=== PATIENT | female | born 1945 | race Caucasian/White ===

== ENCOUNTER → 2016-09-27 | Outpatient (CLI) | payer MEDICARE, OTHER ==
--- NOTE | 2016-10-01 11:15 | MM ---
Reason for exam: screening (asymptomatic). Last mammogram was performed 11 years and 7 months ago. History: Patient is postmenopausal and is nulliparous. Physical Findings: A clinical breast exam by your physician is recommended on an annual basis and results should be correlated with mammographic findings. MG 3D Screening Mammo W/Cad Bilateral CC and MLO view(s) were taken. Prior study comparison: June 08, 2013, mammogram, performed at [facility]. There is no discrete abnormality. ASSESSMENT: Negative, BI-RAD 1 RECOMMENDATION: Routine screening mammogram of both breasts in 1 year.
== END | disposition home or self-care (01) ==
LOC: RADMAMWWP 14:38
PROVIDERS: ATTEND Podiatrist
DX: Z12.31 Encounter for screening mammogram for malignant neoplasm of breast (principal)
CPT/HCPCS: 77063; G0202

== ENCOUNTER → 2016-10-12 | Outpatient (CLI) | payer MEDICARE, OTHER ==
[2016-10-12 13:07] LABS: CHCM 30.6; HDW 2.49; HGB 11.2 gm/dL (11.4-16.0); Hypochromasia Moderate; MCH 28.4 pg (25.0-35.0); MCV 88.6 fL (80.0-100.0); Mean Platelet Volume 7.1; RBC 3.95 m/uL (3.80-5.40); RDW 14.8 % (11.5-15.5); WBC 6.8 k/uL (3.8-10.6)
[2016-10-12 13:28] LABS: Anion Gap 10 mmol/L; Blood Urea Nitrogen 20 mg/dL (7-17); Carbon Dioxide 32 mmol/L (22-30); Chloride 99 mmol/L (98-107); Non-African American GFR(MDRD) >60 (>60 ml/min/1.73 sqM); Potassium 4.5 mmol/L (3.5-5.1); Sodium 141 mmol/L (137-145)
== END | disposition home or self-care (01) ==
LOC: LABWHC1 12:09
PROVIDERS: ATTEND Internal Medicine Interventional Cardiology
DX: Z01.812 Encounter for preprocedural laboratory examination (principal); Z01.818 Encounter for other preprocedural examination; I73.9 Peripheral vascular disease, unspecified
CPT/HCPCS: 80051; 82565; 84520; 85027

== ENCOUNTER → 2016-10-24 | Day surgery (SDC) | payer MEDICARE, OTHER ==
[2016-10-22 12:03] VITALS: BMI 60.2
[~2016-10-24] MED LIST: ALPRAZolam 0.25 MG TAB PO PRN; ASPIRIN 325 MG TAB PO STA; HEPARIN SODIUM 1,000 UNIT/ML VIAL IV ONE; IODIXANOL 320 MG/ML 100 ML INTRAARTER ONE; LIDOCAINE 2% INJ 20 MG/ML SQ ONE; SODIUM CHLORIDE 0.9% 1,000 ML IV ONE; SODIUM CHLORIDE 0.9% 1,000 ML IV SCH; SODIUM CHLORIDE 0.9% 1,000 ML in EMPTY BAG 1 BAG IV ONE
[2016-10-24 07:01] LABS: Glucose,Whole Blood 126 mg/dL (75-99)
[2016-10-24 07:10] VITALS: RESP 18
[2016-10-24] MEDS: MIDAZOLAM 2 MG/2 ML VIAL IVP ONE ×2 (07:49→08:04)
[2016-10-24] MEDS: VERAPAMIL SYRINGE (5 MG/10 ML) INTRAARTER ONE ×2 (07:55→08:11)
[2016-10-24 13:21] VITALS: BP 156/67; PULSE 59; TEMP 98.2
--- NOTE | 2016-10-24 17:50 | PCN ---
DATE OF PROCEDURE: 10/24/2016 PERFORMING PHYSICIAN: Bobby Rao M.D., project management consultant. PROCEDURES PERFORMED: 1. Abdominal aortogram. 2. Bilateral lower extremity runoff. INDICATION: This is a pleasant 71-year-old female patient who was experiencing bilateral lower extremity ulcers. She was seen and evaluated by her motion picture narrator, who recommended proceeding with abdominal aortogram to rule out any severe underlying PAD. APPROACH: Right tibia artery. COMPLICATIONS: None. LEVEL OF SEDATION: Moderate, with a sedation length of 25 minutes. APPROACH: Right radial artery. PROCEDURE DESCRIPTION: After obtaining informed consent, the patient was brought to the cardiac mechanical shop laborer. The right radial artery was cannulated using micropuncture technique. The micropuncture wire passed easily. Then I placed a 6 [place] sheath in the right radial artery. Subsequently I gave the patient 2 mg of Verapamil IA and 3000 units of heparin IV. Subsequently I did an abdominal aortogram and bilateral lower extremity runoff using a 5 [place]ian pigtail catheter which was initially placed at the level of the renal arteries, then it was advanced into above the bifurcation of the aorta to right and left common iliac arteries. The procedure was completed without any complication. SELECTIVE PERIPHERAL ANGIOGRAM: 1. The abdominal aorta is angiographically normal. 2. Iliac system. The right and left common iliac arteries, right and left internal iliac arteries, and the right and left external iliac arteries are angiographically normal. 3. Femoral system. The right and left common femoral arteries, right and left profundae, and right and left SFAs are angiographically normal. 4. Popliteals. The right and left popliteals are angiographically normal. 5. Below the knee. There is 3-vessel runoff below the knee bilaterally. CONCLUSION: Normal peripheral angiogram. POST-PROCEDURE MANAGEMENT: 1. Medical treatment. 2. Follow up with the patient.
--- NOTE | 2016-11-05 11:58 | IR ---
Fluoroscopy HISTORY: Pain 3.8 minutes fluoroscopy time supplied to the referring clinician. 148 intraoperative C-arm images do cument the procedure. See dictated report from cardiology.
== END ==
LOC: CATHCVL 06:16
PROVIDERS: ATTEND Internal Medicine Interventional Cardiology
DX: L97.429 Non-pressure chronic ulcer of left heel and midfoot with unspecified severity (principal); L97.419 Non-pressure chronic ulcer of right heel and midfoot with unspecified severity; E11.8 Type 2 diabetes mellitus with unspecified complications; E66.01 Morbid (severe) obesity due to excess calories; Z68.44 Body mass index [BMI] 60.0-69.9, adult; E78.5 Hyperlipidemia, unspecified; I10 Essential (primary) hypertension; Z79.84 Long term (current) use of oral hypoglycemic drugs; Z79.82 Long term (current) use of aspirin; Z79.899 Other long term (current) drug therapy; Z88.2 Allergy status to sulfonamides
CPT/HCPCS: 36200; 75625; 75716; 99152; 99153; C1769 ×2; C1894; J2001; J2250; Q9967; J1644

== ENCOUNTER → 2017-09-12 | Outpatient (CLI) | payer MEDICARE, OTHER ==
--- NOTE | 2017-09-12 14:32 | BD ---
EXAMINATION TYPE: MG DEXA axial skeleton. DATE OF EXAM: 09/12/2017 COMPARISON: 2002 CLINICAL HISTORY: Postmenopausal female. Osteoporosis screening. Height: 5 FT 6 IN Weight: 380 FRAX RISK QUESTIONS: Alcohol (3 or more units per day): NO Family History (Parent hip fracture): YES Glucocorticoids (More than 3mos): NO (Ex: prednisone, prednisolone, methylprednisolone, dexamethasone, and hydrocortisone). History of Fracture in Adulthood: YES Secondary Osteoporosis: 1. Type 1 Diabetes: NO 2. Hyperthyroidism: NO 3. Menopause before 45: NO 4. Malnutrition: NO 5. Chronic liver disease: NO Rheumatoid Arthritis: NO Current Tobacco Use: NO RISK FACTORS HISTORY OF: Surgery to Spine/Hip(right/left)/Wrist (right/left): RT HIP REPLACED When: 5-6 YEARS AGO Family History of Osteoporosis: NO Active: NO Postmenopausal woman: TOTAL HYST AGE 50 Lost more than 2 inches in height since high school: YES MEDICATIONS: Thyroid Medications: YES Which medication: LEVOTHYROXINE How Long: OVER 15 YEARS Additional Medications: OMEGA 3, MULTI VIT, ASPIRIN, PRAVASTATIN, FUROSEMIDE, LEVOTHYROXINE, LOSARIN, METOPROLOL TRADJENTA, PIOGLITAZONE, METFORMIN, TOVIAZ, POTCHLORIDE Additional History: EXAM MEASUREMENTS: Bone mineral densitometry was performed using the [place] System. Bone mineral density as measured about the Lumbar spine is: ----- L1-L4(G/cm2): 1.897 T Score Values are as follows: ----- L2: 5.3 ----- L3: 7.8 ----- L4: 7.1 ----- L1-L4: 6.0 Bone mineral density has: INCREASED 41.3 % since study of: 2002 Bone mineral density about the L hip (g/cm2): 0.868 T Score values are as follows: -----L Neck: -1.2 -----L Total: -0.1 Bone mineral density has: DECREASED -18.3 % since study of: 2002 IMPRESSION: Osteopenia (T Score between -2.5 and -1). There is slightly increased risk of fracture and the patient may be considered for treatment. Re-Screen 2-5 years. NOTE: T-SCORE=SD OF THE YOUNG ADULT MEAN.
== END | disposition home or self-care (01) ==
LOC: RADBDWWP 09:45
PROVIDERS: ATTEND Family Medicine
DX: M85.80 Other specified disorders of bone density and structure, unspecified site (principal)
CPT/HCPCS: 77080

== ENCOUNTER → 2017-09-19 | Outpatient (CLI) | payer MEDICARE, OTHER ==
--- NOTE | 2017-09-19 15:37 | US ---
EXAMINATION TYPE: US venous doppler duplex LE LT, DATE OF EXAM: 09/19/2017 2:04 PM CLINICAL HISTORY: M79.604 pain right leg, M79.605 pain left leg. LOWER EXTREMITY VENOUS INSUFFICIENCY for slow heeling left ankle ulcer x 5 years; diabetic; Ht 5'6, WT 380lbs COMPARISON: US SIDE PERFORMED: left 1) Color flow is present and patency is documented in the following vessels. No DVT or SVT is noted . Common Femoral Vein Deep Femoral Vein Femoral Vein Popliteal Vein Proximal Calf Veins Greater Saph Vein 2) There is venous reflux noted at the following venous levels: Left CFV, DFV upper, left Greater S aphenous Vein and Right CFV (for opposite groin assessment) 3) Incompetent perforators are noted at these levels: not assessed due to body habitus and inabili ty to see small veins IMPRESSION: 1. No sonographic evidence of deep venous thrombosis or superficial venous arthrosis within the left lower extremity. 2. Venous reflux of the left common femoral vein, femoral vein, greater saphenous vein, and right com mon femoral vein.
--- NOTE | 2017-09-24 11:36 | P.ARTDOP ---
Arterial Doppler LOWER EXTREMITY ARTERIAL DOPPLER: DATE OF SERVICE: 09/19/2017 Reason for study: Left heel ulcer. Doppler waveforms: Multiphasic to the dorsalis pedis on the right. Atypical throughout on the left.. Pulse volume recording: Blunted digital waveforms. Pressure gradients: Ankle pressures are the only ones recorded.. Ankle-brachial indices: Cannot occlude on the right. 0.94 on the left. Suspect these are falsely elevated.. 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 Fairly normal flow pattern on the right but suspect moderate very distal disease. Suspect moderate left fem-pop disease on the left. Clinical correlation recommended..
== END | disposition home or self-care (01) ==
LOC: RADUSWWP 13:26
PROVIDERS: ATTEND Internal Medicine Infectious Disease
DX: I87.2 Venous insufficiency (chronic) (peripheral) (principal); M79.604 Pain in right leg
CPT/HCPCS: 93922

== ENCOUNTER 2018-02-20 18:23 | Inpatient (IN) | payer MEDICARE, OTHER ==
[2018-02-20] MEDS ORDERED: IBUPROFEN 600 MG TAB PO STA (18:33)
[2018-02-20] MEDS ORDERED: PIPERACILLIN-TAZOBACTAM 3.375 GM in DEXTROSE/WATER 1 50ML.BAG IVPB STA (18:33)
[2018-02-20] MEDS ORDERED: ACETAMINOPHEN TAB 500 MG TAB PO STA (18:33)
--- NOTE | 2018-02-20 18:39 | ED ---
General Adult HPI - General Stated complaint: Fall Time Seen by Provider: 02/20/18 18:25 Source: RN notes reviewed - History of Present Illness Initial comments: This is a 72-year-old female who presents emergency Department she is morbidly obese. Patient comes in because she slipped out of bed did not injure anything but was unable to get up on her own and was very weak and decided to come emergency department. Patient states she also noted that her left leg was extremely red she has a wound on the heel which she's been treated for for quite a while and today the leg was all red. Patient also felt much weaker than normal. Patient did not have any focal deficits however patient denied headache patient denies any lightheadedness or dizziness. Patient any chest pain palpitations difficulty breathing shortness of breath. Patient denied any abdominal pain patient denies nausea vomiting diarrhea. Patient denies any dysuria hematuria urinary frequency. - Related Data Home Medications Medication Instructions Recorded Confirmed Aspirin 81 mg PO DAILY 02/26/14 02/21/18 Furosemide [Lasix] 20 mg PO DAILY PRN 02/26/14 02/20/18 Levothyroxine Sodium [Synthroid] 88 mcg PO DAILY 02/26/14 02/20/18 Multivitamins, Thera [Multivitamin 1 tab PO DAILY 02/26/14 02/20/18 (formulary)] Pioglitazone HCl [Actos] 45 mg PO DAILY 02/26/14 02/20/18 Potassium Chloride [Klor-Con 10] 10 meq PO DAILY 02/26/14 02/20/18 Pravastatin Sodium [Pravachol] 20 mg PO HS 02/26/14 02/20/18 Losartan [Cozaar] 25 mg PO DAILY 11/08/14 02/20/18 metFORMIN HCL 1,000 mg PO BID 11/30/16 02/20/18 Linagliptin [Tradjenta] 5 mg PO DAILY 12/14/16 02/20/18 Metoprolol Succinate (ER) [Toprol 50 mg PO DAILY 02/20/18 02/20/18 Xl] [place]-3 Fatty Acids [[place]-3] 1,000 mg PO DAILY 02/20/18 02/20/18 Aspirin 325 mg PO TID PRN 02/21/18 02/21/18 Cyclobenzaprine HCl 10 mg PO HS 02/22/18 02/22/18 Diclofenac Potassium [Cataflam] 50 mg PO TID PRN 02/22/18 02/22/18 Allergies Allergy/AdvReac Type Severity Reaction Status Date / Time sulfamethoxazole Allergy Dyspnea Verified 02/20/18 19:17 [From Bactrim] trimethoprim [From Bactrim] Allergy Dyspnea Verified 02/20/18 19:17 Review of Systems ROS Statement: Those systems with pertinent positive or pertinent negative responses have been documented in the HPI. ROS Other: All systems not noted in ROS Statement are negative. Past Medical History Past Medical History: Diabetes Mellitus, Hyperlipidemia, Hypertension, Osteoarthritis (OA), Thyroid Disorder Additional Past Medical History / Comment(s): wound bilat. heels, cellulitis, Chronic lymphedema with lymphedema bilateral lower extremities History of Any Multi-Drug Resistant Organisms: MRSA Date of last positivie culture/infection: 08/23/17 MDRO Source:: HEEL Past Surgical History: Hysterectomy, Joint Replacement, Orthopedic Surgery Additional Past Surgical History / Comment(s): [place] knee arthroplasty and rt hip arthroplasty, lt cataract, rt foot sx has plate- screws in place . Past Anesthesia/Blood Transfusion Reactions: No Reported Reaction Past Psychological History: No Psychological Hx Reported Additional Psychological History / Comment(s): lives in the family home with her . Volunteers at a local [facility], no travel history, no change in the home, no animals in the home.No History of tobacco, alcohol or recreational drug use. Smoking Status: Never smoker Past Alcohol Use History: Occasional Past Drug Use History: None Reported - Past Family History Mother Family Medical History: Cancer Brother(s) Family Medical History: Cancer Father Brother(s) Family Medical History: Cancer Mother Sister(s) Family Medical History: Cancer, Diabetes Mellitus Sister(s) Family Medical History: Cancer General Exam - General Exam Comments Initial Comments: GENERAL: Patient is well-developed and well-nourished. Patient is nontoxic and well- hydrated and is in mild distress. Patient is morbidly obese with bilateral lymphedema ENT: Neck is soft and supple. No significant lymphadenopathy is noted. Oropharynx is clear. Moist mucous membranes. Neck has full range of motion without eliciting any pain. EYES: The sclera were anicteric and conjunctiva were pink and moist. Extraocular movements were intact and pupils were equal round and reactive to light. Eyelids were unremarkable. PULMONARY: Unlabored respirations. Good breath sounds bilaterally. No audible rales rhonchi or wheezing was noted. CARDIOVASCULAR: There is a regular rate and rhythm without any murmurs gallops or rubs. ABDOMEN: Soft and nontender with normal bowel sounds. No palpable organomegaly was noted. There is no palpable pulsatile mass. SKIN: Skin is clear with no lesions or rashes and otherwise unremarkable. NEUROLOGIC: Patient is alert and oriented x3. Cranial nerves II through XII are grossly intact. Motor and sensory are also intact. Normal speech, volume and content. Symmetrical smile. MUSCULOSKELETAL: Patient has bilateral lymphedema and a wound on the heels both feet the left leg is erythematous between the knee down to the foot. It is also warm to touch. LYMPHATICS: No significant lymphadenopathy is noted PSYCHIATRIC: Normal psychiatric evaluation. Course Vital Signs 02/20/18 02/20/18 02/20/18 18:33 19:43 20:48 Temperature 101.9 F H 99.5 F 98 F Pulse Rate 88 84 78 Respiratory 20 20 18 Rate Blood Pressure 131/57 116/51 96/46 O2 Sat by Pulse 95 95 95 Oximetry 02/20/18 02/20/18 21:26 22:28 Temperature 97.7 F 98.1 F Pulse Rate 77 80 Respiratory 18 20 Rate Blood Pressure 98/50 123/56 O2 Sat by Pulse 95 95 Oximetry Procedures - Sepsis Sepsis Focused Exam #1 Time Sepsis Criteria Met: 19:00 Sepsis Focused Exam Date: 02/20/18 Sepsis Focused Exam Time: 20:16 Sepsis Focused Exam Complete: Yes Vital Signs & RN Notes Reviewed: Yes Capillary Refill: > 2 Seconds: Fingers Peripheral Pulses: Absent: Dorsalis Pedis (L), Normal: Radial (R) Skin Color: Normal for Patient Respiratory Exam: normal lung sounds Cardiovascular Exam: regular rate Medical Decision Making - Medical Decision Making Patient's ideal body weight is 61 kg EKG shows a sinus rhythm at 85 bpm TX interval is 226 QRS is 162 QT interval 432 QTC is 514. Patient has a right bundle josue block. I gave the patient 2 L of fluid for the 30 miles per ideal body weight. Patient received antibiotics in the emergency department. I spoke with Dr. Gonzales he agreed to admit the patient admitted the patient I wrote admitting orders continued antibiotics on the floor. - Lab Data Result diagrams: 02/20/18 19:17 10/06/18 08:49 Lab Results 02/20/18 02/20/18 02/20/18 Range/Units 19:17 19:17 19:17 WBC 19.5 H (3.8-10.6) k/uL RBC 4.59 (3.80-5.40) m/uL Hgb 12.4 (11.4-16.0) gm/dL Hct 39.5 (34.0-46.0) % MCV 86.0 (80.0-100.0) fL MCH 26.9 (25.0-35.0) pg MCHC 31.3 (31.0-37.0) g/dL RDW 15.7 H (11.5-15.5) % Plt Count 261 (150-450) k/uL Neutrophils % (Manual) 49 % Band Neutrophils % 32 % Lymphocytes % (Manual) 5 % Monocytes % (Manual) 2 % Metamyelocytes % 8 % Myelocytes % 5 % Neutrophils # (Manual) 15.70 H (1.3-7.7) k/uL Lymphocytes # (Manual) 0.98 L (1.0-4.8) k/uL Monocytes # (Manual) 0.39 (0-1.0) k/uL Metamyelocytes # (Man) 1.56 H (0) k/uL Myelocytes # (Manual) 0.98 H (0) k/uL Nucleated RBCs 0 (0-0) /100 WBC Manual Slide Review Performed Toxic Granulation Present Hypochromasia (manual) Present Poikilocytosis (manual Present PT (9.0-12.0) sec INR (<1.2) APTT (22.0-30.0) sec Sodium 132 L (137-145) mmol/L Potassium 4.7 (3.5-5.1) mmol/L Chloride 92 L (98-107) mmol/L Carbon Dioxide 23 (22-30) mmol/L Anion Gap 17 mmol/L BUN 45 H (7-17) mg/dL Creatinine 1.98 H (0.52-1.04) mg/dL Est GFR (CKD-EPI)AfAm 29 (>60 ml/min/1.73 sqM) Est GFR (CKD-EPI)NonAf 25 (>60 ml/min/1.73 sqM) Glucose 147 H (74-99) mg/dL Lactic Ac Sepsis Rflx Plasma Lactic Acid Terrence 5.6 H* (0.7-2.0) mmol/L Calcium 8.8 (8.4-10.2) mg/dL Total Bilirubin 1.0 (0.2-1.3) mg/dL AST 81 H (14-36) U/L ALT 23 (9-52) U/L Alkaline Phosphatase 132 H (38-126) U/L Total Protein 7.8 (6.3-8.2) g/dL Albumin 3.8 (3.5-5.0) g/dL 02/20/18 02/20/18 Range/Units 19:17 19:45 WBC (3.8-10.6) k/uL RBC (3.80-5.40) m/uL Hgb (11.4-16.0) gm/dL Hct (34.0-46.0) % MCV (80.0-100.0) fL MCH (25.0-35.0) pg MCHC (31.0-37.0) g/dL RDW (11.5-15.5) % Plt Count (150-450) k/uL Neutrophils % (Manual) % Band Neutrophils % % Lymphocytes % (Manual) % Monocytes % (Manual) % Metamyelocytes % % Myelocytes % % Neutrophils # (Manual) (1.3-7.7) k/uL Lymphocytes # (Manual) (1.0-4.8) k/uL Monocytes # (Manual) (0-1.0) k/uL Metamyelocytes # (Man) (0) k/uL Myelocytes # (Manual) (0) k/uL Nucleated RBCs (0-0) /100 WBC Manual Slide Review Toxic Granulation Hypochromasia (manual) Poikilocytosis (manual PT 12.6 H (9.0-12.0) sec INR 1.3 H (<1.2) APTT 28.8 (22.0-30.0) sec Sodium (137-145) mmol/L Potassium (3.5-5.1) mmol/L Chloride (98-107) mmol/L Carbon Dioxide (22-30) mmol/L Anion Gap mmol/L BUN (7-17) mg/dL Creatinine (0.52-1.04) mg/dL Est GFR (CKD-EPI)AfAm (>60 ml/min/1.73 sqM) Est GFR (CKD-EPI)NonAf (>60 ml/min/1.73 sqM) Glucose (74-99) mg/dL Lactic Ac Sepsis Rflx Y Plasma Lactic Acid Terrence (0.7-2.0) mmol/L Calcium (8.4-10.2) mg/dL Total Bilirubin (0.2-1.3) mg/dL AST (14-36) U/L ALT (9-52) U/L Alkaline Phosphatase (38-126) U/L Total Protein (6.3-8.2) g/dL Albumin (3.5-5.0) g/dL Critical Care Time Critical Care Time: Yes Total Critical Care Time: 35 Disposition Clinical Impression: Left leg cellulitis, Sepsis Disposition: ADMITTED IP TO THIS [facility] Time of Disposition: 20:19
--- NOTE | 2018-02-20 19:32 | XR ---
EXAMINATION TYPE: XR chest 1V portable DATE OF EXAM: 02/20/2018 COMPARISON: 08/30/2007 HISTORY: Fever TECHNIQUE: Single frontal view of the chest is obtained. FINDINGS: There is no heart failure nor confluent pneumonic infiltrate. Costophrenic angles are chayito r. Heart appears enlarged. IMPRESSION: Cardiomegaly. No active cardiopulmonary disease. No change.
[2018-02-20 19:37] LABS: Albumin 3.8 g/dL (3.5-5.0); Calcium 8.8 mg/dL (8.4-10.2); Potassium 4.7 mmol/L (3.5-5.1); Total Protein 7.8 g/dL (6.3-8.2)
[2018-02-20] MEDS: SODIUM CHLORIDE 0.9% 500 ML IV SCH ×3 (19:39→19:41)
[2018-02-20 19:45] LABS: HCT 39.5 % (34.0-46.0); HGB 12.4 gm/dL (11.4-16.0); MCH 26.9 pg (25.0-35.0); MCHC 31.3 g/dL (31.0-37.0); Mean Platelet Volume 6.8; Platelet Count 261 k/uL (150-450); RBC 4.59 m/uL (3.80-5.40); RDW 15.7 % (11.5-15.5); WBC 19.5 k/uL (3.8-10.6)
[2018-02-20] MEDS ORDERED: SODIUM CHLORIDE 0.9% 500 ML IV ONE (19:46)
[2018-02-20 19:57] LABS: INR 1.3 (<1.2); Partial Thromboplastin Time 28.8 sec (22.0-30.0); Prothrombin Time 12.6 sec (9.0-12.0)
[2018-02-20] MEDS ORDERED: VANCOMYCIN IV PER PHARMACY 1 EACH MISC MISCELLANE PRN (20:01)
[2018-02-20] MEDS ORDERED: VANCOMYCIN 2,000 MG in SODIUM CHLORIDE 0.9% 500 ML IVPB STA (20:05)
[2018-02-20 20:14] LABS: Band Neutrophils % 32 %; Hypochromasia (M) Present; Lymphocytes # (M) 0.98 k/uL (1.0-4.8); Metamyelocytes # (M) 1.56 k/uL (0); Metamyelocytes % 8 %; Monocytes # (M) 0.39 k/uL (0-1.0); Myelocytes # (M) 0.98 k/uL (0); Myelocytes % 5 %; Neutrophils % (M) 49 %; Nucleated Red Blood Cells 0 /100 WBC (0-0); Total Cells Counted 200; Toxic Granulation Present
[2018-02-20 20:15] LABS: Poikilocytosis (M) Present
[2018-02-20] MEDS ORDERED: SODIUM CHLORIDE 0.9% 1,000 ML IV ONE (20:19)
[2018-02-20 23:18] LABS: Glucose,Whole Blood 160 mg/dL (75-99)
[2018-02-21] MEDS ORDERED: PIPERACILLIN-TAZOBACTAM 3.375 GM in DEXTROSE/WATER 1 50ML.BAG IVPB SCH
[2018-02-21] MEDS ORDERED: ASPIRIN 325 MG TAB PO PRN (02:25)
[2018-02-21] MEDS: PIPERACILLIN-TAZOBACTAM 3.375 GM in DEXTROSE/WATER 1 50ML.BAG IVPB SCH ×2 (04:39→11:19)
[2018-02-21 06:21] LABS: Glucose,Whole Blood 124 mg/dL (75-99)
[2018-02-21 06:50] LABS: Calcium 7.9 mg/dL (8.4-10.2); Potassium 3.9 mmol/L (3.5-5.1)
[2018-02-21 08:21] LABS: Appearance,Urine Cloudy (Clear); Bacteria,Urine Occasional /hpf; Bilirubin,Urine Negative (Negative); Blood,Urine Trace (Negative); Color,Urine Yellow; Glucose,Urine (UA) Negative (Negative); Hyaline Casts,Urine 12 /lpf (0-2); Ketones,Urine Negative (Negative); Leukocyte Esterase,Urine Moderate (Negative); Mucus,Urine Rare /hpf; Nitrite,Urine Negative (Negative); Protein,Urine Trace (Negative); RBC,Urine 1 /hpf (0-5); Specific Gravity,Urine 1.011 (1.001-1.035); Squamous Epithelial Cell,Urine 6 /hpf (0-4); Urobilinogen,Urine <2.0 mg/dL (<2.0); WBC,Urine 20 /hpf (0-5)
[2018-02-21] MEDS ORDERED: FUROSEMIDE 20 MG TAB PO PRN (10:19)
[2018-02-21] MEDS ORDERED: LOSARTAN 25 MG TAB PO SCH (10:30)
[2018-02-21] MEDS: LEVOTHYROXINE 88 MCG TAB PO SCH (11:05)
[2018-02-21] MEDS: LINAGLIPTIN 5 MG TABLET PO SCH (11:06)
[2018-02-21] MEDS: METOPROLOL SUCCINATE (ER) 50 MG TAB.ER.24H PO SCH (11:06)
[2018-02-21] MEDS: metFORMIN 500 MG TAB PO SCH ×2 (11:06→22:02)
[2018-02-21] MEDS: POTASSIUM CITRATE 10 MEQ TABLET.ER PO SCH (11:06)
[2018-02-21] MEDS: PIOGLITAZONE 45 MG TAB PO SCH (11:06)
[2018-02-21 11:39] LABS: Glucose,Whole Blood 116 mg/dL (75-99)
[2018-02-21 11:49] VITALS: BMI 60.5
[2018-02-21] MEDS ORDERED: VANCOMYCIN IV PER PHARMACY 1 EACH MISC MISCELLANE PRN (12:37)
[2018-02-21] MEDS ORDERED: MAGNESIUM HYDROXIDE 2,400 MG/10 ML CUP PO PRN (12:40)
[2018-02-21] MEDS ORDERED: ONDANSETRON 4 MG/2 ML VIAL IVP PRN (12:40)
[2018-02-21] MEDS ORDERED: CALCIUM CARBONATE 500 MG CHEWABLE PO PRN (12:40)
[2018-02-21] MEDS ORDERED: ALPRAZolam 0.25 MG TAB PO PRN (12:40)
[2018-02-21] MEDS ORDERED: MELATONIN 3 MG TABLET PO PRN (12:40)
[2018-02-21] MEDS ORDERED: LACTULOSE 20 GM/30 ML CUP PO PRN (12:40)
[2018-02-21] MEDS: LACTATED RINGERS 1,000 ML IV SCH ×2 (13:22→23:33)
--- NOTE | 2018-02-21 13:41 | HP ---
HISTORY AND PHYSICAL DATE OF ADMISSION: 02/20/2018 DATE OF SERVICE: 02/21/2018 PRESENTING COMPLAINT: Redness of the left leg. HISTORY OF PRESENTING COMPLAINT: This is a pleasant 72-year-old patient who follows with Dr. Solorzano. Chronic stable medical conditions include diabetes, hyperlipidemia, hypertension, osteoarthritis, hypothyroid and chronic lymphedema. Patient does not really ambulate much. The patient was in a bed. She slid down and was not able to really get up. The patient was found to have pain, redness and swelling of the left lower extremity below the knee, found to have acute cellulitis and has also wound on the heel that was being treated. Patient did feel weak, tired, run down. Patient is also found to be in acute renal failure with a creatinine of 1.6 recently being normal and lactic acidosis, started on IV antibiotics in the ER. Admitted for the same. Urine also is looking infected appearing appear. REVIEW OF SYSTEMS: CONSTITUTIONAL: Tired. HEENT: None. RESPIRATORY: None. CARDIOVASCULAR: None. GASTROINTESTINAL: None. GENITOURINARY: None. MUSCULOSKELETAL: Arthritic pain in joints. DERMATOLOGICAL: Chronic lymphedema. LYMPHATICS: As above. PSYCHIATRY: None. NEUROLOGICAL: None. PAST MEDICAL HISTORY: Diabetes, hyperlipidemia, hypertension, osteoarthritis, hypothyroid, bilateral heel wounds, chronic lymphedema of lower extremities. PAST SURGICAL HISTORY: Hysterectomy, joint replacement, bilateral knee arthroplasty, right hip arthroplasty, left cataract, right foot surgery has plate and screws in place. SOCIAL HISTORY: . Lives at home with and other family members. No smoking. Alcohol occasional. FAMILY HISTORY: Family history of cancer type unknown. HOME MEDICATIONS: 1. Aspirin 325 p.o. t.i.d. p.r.n. and 81 mg p.o. daily. 2. Metformin 1000 mg b.i.d. 3. Pravachol 20 mg q.h.s. 4. Potassium 10 mEq a day. 5. Actos 45 mg p.o. daily. 6. [place]-3, 1000 mg p.o. daily. 7. Multivitamin 1 tablet p.o. daily. 8. Toprol XL 50 mg a day. 9. Cozaar 25 mg a day. 10.Tradjenta 5 mg p.o. daily. 11.Synthroid 88 mcg a day. 12.Lasix 20 mg daily p.r.n. ALLERGIES: BACTRIM. PHYSICAL EXAMINATION: On examination, vital signs on presentation: Temperature 101.9, pulse 88, respiration 20, blood pressure 131/57, pulse ox 95% on room air. GENERAL APPEARANCE: Well built, BMI 60.5, sitting up, tired appearing. EYES: Pupils equal. Conjunctivae normal. HENT: External appearance of nose and ears normal. Oral cavity normal. NECK: Short, thick. JVD unable to assess. Mass not palpable. RESPIRATORY: Effort normal. LUNGS: Distant breath sounds. CARDIOVASCULAR: Heart sounds muffled. Some edema present. ABDOMEN: Distended, soft. Liver and spleen not palpable. LYMPHATIC: No lymph node palpable in the neck or axillae. PSYCHIATRY: Alert and oriented x3. Mood and affect normal. NEUROLOGICAL: Pupils equal. Cranial nerves grossly intact. EXTREMITIES: Bilateral lower extremity lymphedema. Redness and tenderness on the left lower extremity, going from below the knee down to the foot with ulcer on the left heel, probably venous ulcer may be stage II. INVESTIGATIONS: White count 19.5, hemoglobin 12.4, platelets 261, left shift. Potassium 4.7, BUN 45, creatinine 1.98. Lactic acid 5.6. UA positive. ASSESSMENT: 1. Acute severe cellulitis of left lower extremity with decubitus ulcer present on the left heel, stage II, causing sepsis, present on admission with lactic acidosis. 2. Diabetes mellitus type 2 on oral hypoglycemic. 3. Hyperlipidemia. 4. Essential hypertension. 5. Primary osteoarthritis multiple joints. 6. Hypothyroid. 7. Chronic bilateral lower extremity lymphedema. 8. Acute renal failure could be prerenal and with acute tubular necrosis, could be from sepsis. 9. Morbid obesity, BMI 60.5. PLAN: We will switch the patient's IV antibiotics to clindamycin, especially in view of the fact that Vancomycin will not be a good choice in a setting of renal failure. We will give the patient IV fluids. Will discontinue patient's home dose of Lasix. Repeat electrolytes. I will also add Silvadene cream to the left leg with Kerlix. Care was discussed with the patient. Questions were answered. MMODL / IJN: [id number] /
[2018-02-21] MEDS: ACETAMINOPHEN TAB 325 MG TAB PO PRN ×2 (13:49→23:32)
[2018-02-21 13:50] LABS: Hemoglobin A1C 6.9 % (4.0-6.0)
[2018-02-21] MEDS: CLINDAMYCIN 300 MG in DEXTROSE 5% IN WATER 50 ML IVPB SCH ×4 (16:35→23:32)
[2018-02-21 17:15] LABS: Glucose,Whole Blood 97 mg/dL (75-99)
[2018-02-21] MEDS ORDERED: VANCOMYCIN 2,500 MG in SODIUM CHLORIDE 0.9% 500 ML IVPB SCH (21:00)
[2018-02-21 22:03] LABS: Glucose,Whole Blood 126 mg/dL (75-99)
[2018-02-21] MEDS: PRAVASTATIN SODIUM 20 MG TAB PO SCH (22:03)
[2018-02-22] MEDS: LEVOTHYROXINE 88 MCG TAB PO SCH (06:34)
[2018-02-22 07:25] LABS: Glucose,Whole Blood 138 mg/dL (75-99)
[2018-02-22] MEDS: metFORMIN 500 MG TAB PO SCH ×2 (09:11→20:54)
[2018-02-22] MEDS: PIOGLITAZONE 45 MG TAB PO SCH (09:11)
[2018-02-22] MEDS: LINAGLIPTIN 5 MG TABLET PO SCH (09:11)
[2018-02-22] MEDS: METOPROLOL SUCCINATE (ER) 50 MG TAB.ER.24H PO SCH (09:11)
[2018-02-22] MEDS: POTASSIUM CITRATE 10 MEQ TABLET.ER PO SCH (09:11)
[2018-02-22] MEDS: ASPIRIN 81 MG PO SCH (09:11)
[2018-02-22] MEDS: LACTATED RINGERS 1,000 ML IV SCH (09:12)
[2018-02-22 09:22] LABS: Calcium 8.2 mg/dL (8.4-10.2); Potassium 3.8 mmol/L (3.5-5.1)
[2018-02-22] MEDS: CLINDAMYCIN 300 MG in DEXTROSE 5% IN WATER 50 ML IVPB SCH ×6 (09:50→23:25)
[2018-02-22] MEDS: ACETAMINOPHEN TAB 325 MG TAB PO PRN (09:54)
[2018-02-22 12:27] LABS: Glucose,Whole Blood 153 mg/dL (75-99)
[2018-02-22] MEDS: MULTIVITAMINS, THERA 1 EACH TAB PO SCH (14:14)
[2018-02-22 17:02] LABS: Glucose,Whole Blood 127 mg/dL (75-99)
--- NOTE | 2018-02-22 18:23 | PN ---
PROGRESS NOTE DATE OF SERVICE: 02/22/2018. PRESENTING COMPLAINT: Redness of the left leg. INTERVAL HISTORY: This patient presented with left lower extremity cellulitis, pain, redness is still getting better, is getting topical treatment with Mika wraps. Also getting IV antibiotics. The patient is not too keen on the food in the hospital. Also had acute renal failure. REVIEW OF SYSTEMS: Done for constitutional, cardiovascular, GI, pulmonary; relevant findings as above. CURRENT MEDICATIONS: Reviewed that include clindamycin and Silvadene. PHYSICAL EXAMINATION: VITAL SIGNS: Temperature afebrile. Pulse 75, respiratory rate 20, blood pressure 122/63, pulse ox 96% on 2 L. GENERAL APPEARANCE: Sitting on bed, awake. EYES: Pupils equal. Conjunctivae normal. HEENT: External appearance of nose and ears normal. Oral cavity normal. NECK: Short, thick. JVD unable to assess. Mass not palpable. RESPIRATORY effort normal. LUNGS: Decreased breath sounds. CARDIOVASCULAR: Heart sounds muffled. Some nonpitting edema present. ABDOMEN: Distended, soft. Liver and spleen not palpable. PSYCHIATRY: Alert and oriented times three. Mood and affect normal. EXTREMITIES: Left lower extremity Mika wrap in place. Above that some redness is still present, but decreased. INVESTIGATIONS: Potassium 3.8, BUN 32, creatinine 0.90. ASSESSMENT: 1. Acute severe cellulitis left lower extremity with decubitus ulcer present on the left heel, stage II, causing sepsis, present on admission. Lactic acidosis with clinical response. 2. Diabetes mellitus type 2 on oral hypoglycemic. 3. Hyperlipidemia. 4. Essential hypertension. 5. Primary osteoarthritis multiple joints. 6. Hypothyroid. 7. Chronic bilateral lower extremity lymphedema. 8. Acute renal failure probably prerenal and acute tubular necrosis now resolved. 9. Morbid obesity BMI 60.5. The patient is doing better. Continue current medication and treatment plan. We will see in the next 24 hours if the patient is keen to go back home or will need to go to the [facility] depending on how she does. MMODL / IJN: [id number] /
[2018-02-22] MEDS: PRAVASTATIN SODIUM 20 MG TAB PO SCH (20:54)
[2018-02-22] MEDS: CYCLOBENZAPRINE 10 MG TAB PO SCH (20:54)
[2018-02-22 21:41] LABS: Glucose,Whole Blood 137 mg/dL (75-99)
[2018-02-23] MEDS: ETODOLAC 200 MG CAPSULE PO PRN ×2 (05:49→15:31)
[2018-02-23] MEDS: LEVOTHYROXINE 88 MCG TAB PO SCH (06:18)
[2018-02-23 07:59] LABS: Glucose,Whole Blood 147 mg/dL (75-99)
[2018-02-23] MEDS: PIOGLITAZONE 45 MG TAB PO SCH (09:00)
[2018-02-23] MEDS: LINAGLIPTIN 5 MG TABLET PO SCH (09:00)
[2018-02-23] MEDS: METOPROLOL SUCCINATE (ER) 50 MG TAB.ER.24H PO SCH (09:00)
[2018-02-23] MEDS: POTASSIUM CITRATE 10 MEQ TABLET.ER PO SCH (09:00)
[2018-02-23] MEDS: metFORMIN 500 MG TAB PO SCH ×2 (09:00→20:07)
[2018-02-23] MEDS: ASPIRIN 81 MG PO SCH (09:01)
[2018-02-23] MEDS: CLINDAMYCIN 300 MG in DEXTROSE 5% IN WATER 50 ML IVPB SCH ×6 (09:01→23:35)
[2018-02-23 10:04] LABS: Anion Gap 6 mmol/L; Blood Urea Nitrogen 22 mg/dL (7-17); Calcium 8.4 mg/dL (8.4-10.2); Carbon Dioxide 30 mmol/L (22-30); Chloride 102 mmol/L (98-107); Glucose 153 mg/dL (74-99); Potassium 3.8 mmol/L (3.5-5.1); Sodium 138 mmol/L (137-145)
[2018-02-23 11:56] LABS: Glucose,Whole Blood 163 mg/dL (75-99)
[2018-02-23] MEDS: MULTIVITAMINS, THERA 1 EACH TAB PO SCH (13:26)
[2018-02-23] MEDS ORDERED: COLLAGENASE 250 UNIT/GM OINTMENT 30 GM TUBE TOPICAL SCH (15:45)
[2018-02-23 17:41] LABS: Glucose,Whole Blood 134 mg/dL (75-99)
[2018-02-23] MEDS: CYCLOBENZAPRINE 10 MG TAB PO SCH (20:07)
[2018-02-23] MEDS: PRAVASTATIN SODIUM 20 MG TAB PO SCH (20:07)
[2018-02-23 21:14] LABS: Glucose,Whole Blood 159 mg/dL (75-99)
--- NOTE | 2018-02-24 00:31 | PN ---
PROGRESS NOTE DATE OF SERVICE: 02/23/2018. PRESENTING COMPLAINT: Redness in the left leg. INTERVAL HISTORY: This patient with left lower left lower extremity cellulitis, pain. Redness actually has gotten better. The patient has got a wound on the ball of the heel, and also small on the right side, present on admission. Getting IV antibiotics. The patient is tolerating some diet. Also had acute renal failure when she presented. REVIEW OF SYSTEMS: Done for constitutional, cardiovascular, GI, pulmonary; relevant findings as above. The patient's redness is getting better in the leg. CURRENT MEDICATIONS: Reviewed, include IV clindamycin. PHYSICAL EXAMINATION: Temperature 97, pulse 69, respiratory rate 18, blood pressure 130/65, pulse ox 98% on 2 L. GENERAL APPEARANCE: Lying in bed, awake. EYES: Pupils equal. Conjunctivae normal. HEENT: External nose and ears normal. Oral cavity normal. NECK: JVD unable to assess. No mass palpable. Respiratory effort normal. LUNGS: Decreased breath sounds cardiovascular. CARDIOVASCULAR: Heart sounds muffled. Nonpitting edema. ABDOMEN: Distended, soft. Liver and spleen not palpable. PSYCHIATRY: Alert and oriented x3. Mood normal. EXTREMITIES: Left lower extremity redness is actually improved. Decub wound is present on the left heel and a smaller one on the right heel, both were present on admission. INVESTIGATIONS: Potassium 3.8, BUN 22, creatinine 0.73. Accu-Cheks are noted. ASSESSMENT: 1. Acute severe cellulitis of left lower extremity with decubitus ulcer present on the left heel, stage II, causing sepsis present on admission and also on the right heel, present on admission. 2. Lactic acidosis with good clinical response. 3. Diabetes mellitus type 2 on oral hypoglycemic. 4. Hyperlipidemia. 5. Essential hypertension. 6. Primary osteoarthritis, multiple joints. 7. Hypothyroid. 8. Chronic bilateral lower extremity lymphedema. 9. Acute renal failure probably prerenal and acute tubular necrosis, now resolved. 10.Morbid obesity, BMI 60.5. PLAN: Continue current medication and treatment plan. Doing well. Dr. Camejo was consulted for management of the wound. The patient is discussing going to the [facility]. MMODL / IJN: [id number] /
[2018-02-24] MEDS: LEVOTHYROXINE 88 MCG TAB PO SCH (06:39)
[2018-02-24 07:27] LABS: Glucose,Whole Blood 129 mg/dL (75-99)
[2018-02-24] MEDS: CLINDAMYCIN 300 MG in DEXTROSE 5% IN WATER 50 ML IVPB SCH ×2 (08:37)
[2018-02-24] MEDS: POTASSIUM CITRATE 10 MEQ TABLET.ER PO SCH (08:38)
[2018-02-24] MEDS: PIOGLITAZONE 45 MG TAB PO SCH (08:38)
[2018-02-24] MEDS: METOPROLOL SUCCINATE (ER) 50 MG TAB.ER.24H PO SCH (08:38)
[2018-02-24] MEDS: metFORMIN 500 MG TAB PO SCH ×2 (08:38→22:04)
[2018-02-24] MEDS: ASPIRIN 81 MG PO SCH (08:38)
[2018-02-24] MEDS: LINAGLIPTIN 5 MG TABLET PO SCH (08:38)
[2018-02-24] MEDS: ETODOLAC 200 MG CAPSULE PO PRN ×2 (09:29→15:16)
[2018-02-24] MEDS ORDERED: VANCOMYCIN IV PER PHARMACY 1 EACH MISC MISCELLANE PRN (10:47)
[2018-02-24] MEDS: SILVER sulfADIAZINE Cream 400 GM 1 APPLIC APPLIC TOPICAL SCH ×2 (11:07→22:06)
[2018-02-24 11:12] LABS: Glucose,Whole Blood 190 mg/dL (75-99)
[2018-02-24] MEDS ORDERED: VANCOMYCIN 2,500 MG in SODIUM CHLORIDE 0.9% 500 ML IVPB ONE (12:00)
[2018-02-24 12:24] LABS: Anion Gap 9 mmol/L; Blood Urea Nitrogen 16 mg/dL (7-17); Calcium 8.8 mg/dL (8.4-10.2); Carbon Dioxide 31 mmol/L (22-30); Chloride 99 mmol/L (98-107); Glucose 174 mg/dL (74-99); Potassium 3.9 mmol/L (3.5-5.1); Sodium 139 mmol/L (137-145)
[2018-02-24] MEDS: MULTIVITAMINS, THERA 1 EACH TAB PO SCH (13:06)
--- NOTE | 2018-02-24 14:28 | P.CONS ---
History of Present Illness - Reason for Consult Consult date: 02/24/18 Wounds, cellulitis - History of Present Illness This is a 72-year-old female patient well-known to ID service as she has been a patient in the wound healing Center under the care of Dr. 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 Her last appointment was on February 14 at which time she underwent debridement and local wound care is in the form of collagen. She does have home care in place on Mondays and Saturday for local wound care. Patient states everything was fine on Saturday but when she woke up on she had significant redness to the left leg. It was sudden onset and she was feeling weak. She ended up sliding off the couch to the floor and couldn't get up. She denies any true fall or injury. She denies having any fever or chills. She has had decreased appetite without nausea vomiting or diarrhea. Patient is found to have a temperature of 101.9, white count of 19.5, INR 1.3. B UN was 45 and creatinine 1.98 with improvement to 0.73. Lactic acid 3.1 and patient is status post 2 L of IV fluid. Repeat lactic acid 2.2. AST 81, alkaline phosphatase 132, ALT 23. Urinalysis was cloudy, leukoesterase moderate, white count 20 and squamous cell 6. Blood culture showing no growth after 72 hours and urine was finalized with no growth after 18 hours. Chest x-ray showed cardiomegaly with no acute cardio pulmonary process. Patient was admitted to the [facility] floor and has received 1 dose of vancomycin, 3 doses of Zosyn is currently on clindamycin. Patient's last wound culture was positive for MRSA resistant to clindamycin. She does state that her weakness and appetite have improved. She continues to have significant pain and erythema to the left lower extremity which she states is not improved. Review of Systems All systems: negative Constitutional: Reports fatigue, Reports lethargy, Reports malaise, Reports poor appetite, Reports weakness, Denies chills, Denies fever Eyes: denies blurred vision, denies pain Ears, nose, mouth and throat: Denies headache, Denies mouth pain, Denies sore throat, Denies vertigo Cardiovascular: Reports leg edema, Denies chest pain, Denies decreased exercise tolerance, Denies dyspnea on exertion, Denies lightheadedness, Denies shortness of breath, Denies syncope Respiratory: Denies cough, Denies cough with sputum, Denies dyspnea, Denies excessive sputum, Denies hemoptysis, Denies wheezing Gastrointestinal: Denies abdominal pain, Denies diarrhea, Denies nausea, Denies vomiting Genitourinary: Denies dysuria, Denies hematuria, Denies urgency, Denies urinary frequency Musculoskeletal: Denies myalgias Integumentary: Reports color changes, Reports darkening of skin, Reports wounds , Denies pruritus, Denies rash Neurological: Denies numbness, Denies weakness Psychiatric: Denies anxiety, Denies depression Endocrine: Denies fatigue, Denies weight change Past Medical History Past Medical History: Diabetes Mellitus, Hyperlipidemia, Hypertension, Osteoarthritis (OA), Thyroid Disorder Additional Past Medical History / Comment(s): wound bilat. heels, cellulitis, Chronic lymphedema with lymphedema bilateral lower extremities History of Any Multi-Drug Resistant Organisms: MRSA Year Discovered:: 08/23/17 MDRO Source:: HEEL Past Surgical History: Hysterectomy, Joint Replacement, Orthopedic Surgery Additional Past Surgical History / Comment(s): [place] knee arthroplasty and rt hip arthroplasty, lt cataract, rt foot sx has plate- screws in place . Past Anesthesia/Blood Transfusion Reactions: No Reported Reaction Past Psychological History: No Psychological Hx Reported Additional Psychological History / Comment(s): lives in the family home with her . 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 Smoking Status: Never smoker Past Alcohol Use History: Occasional Past Drug Use History: None Reported - Past Family History Mother Family Medical History: Cancer Brother(s) Family Medical History: Cancer Father Brother(s) Family Medical History: Cancer Mother Sister(s) Family Medical History: Cancer, Diabetes Mellitus Sister(s) Family Medical History: Cancer Medications and Allergies Home Medications Medication Instructions Recorded Confirmed Type Aspirin 81 mg PO DAILY 02/26/14 02/21/18 History Furosemide [Lasix] 20 mg PO DAILY PRN 02/26/14 02/20/18 History Levothyroxine Sodium [Synthroid] 88 mcg PO DAILY 02/26/14 02/20/18 History Multivitamins, Thera [Multivitamin 1 tab PO DAILY 02/26/14 02/20/18 History (formulary)] Pioglitazone HCl [Actos] 45 mg PO DAILY 02/26/14 02/20/18 History Potassium Chloride [Klor-Con 10] 10 meq PO DAILY 02/26/14 02/20/18 History Pravastatin Sodium [Pravachol] 20 mg PO HS 02/26/14 02/20/18 History Losartan [Cozaar] 25 mg PO DAILY 11/08/14 02/20/18 History metFORMIN HCL 1,000 mg PO BID 11/30/16 02/20/18 History Linagliptin [Tradjenta] 5 mg PO DAILY 12/14/16 02/20/18 History Metoprolol Succinate (ER) [Toprol 50 mg PO DAILY 02/20/18 02/20/18 History Xl] Caldwell-3 Fatty Acids [Caldwell-3] 1,000 mg PO DAILY 02/20/18 02/20/18 History Aspirin 325 mg PO TID PRN 02/21/18 02/21/18 History Cyclobenzaprine HCl 10 mg PO HS 02/22/18 02/22/18 History Diclofenac Potassium [Cataflam] 50 mg PO TID PRN 02/22/18 02/22/18 History Allergies Allergy/AdvReac Type Severity Reaction Status Date / Time sulfamethoxazole Allergy Dyspnea Verified 02/20/18 19:17 [From Bactrim] trimethoprim [From Bactrim] Allergy Dyspnea Verified 02/20/18 19:17 Physical Exam Vitals: Vital Signs Temp Pulse Resp BP Pulse Ox 02/24/18 05:35 97.4 F L 75 20 111/52 94 L 02/23/18 23:00 97.7 F 78 20 150/66 94 L 02/23/18 15:07 97.0 F L 69 18 135/65 98 Intake and Output 02/23/18 02/24/18 02/24/18 22:59 06:59 14:59 Other: Voiding Method Bedpan # Voids 1 3 # Bowel Movements 1 Weight 175.2 kg Gen: This is a morbidly obese 72-year-old female. She is sitting up in bed and breakfast and appears to be comfortable and in no acute distress. No difficulty swallowing or breathing noted. HEENT: Head is atraumatic, normocephalic. Pupils equal, round. Sclerae is anicteric. Intent of a pink. Mucous members of the mouth are moist. NECK: Supple. No JVD. No lymphadenopathy. No thyromegaly. LUNGS: Clear to auscultation. No wheezes or rhonchi. No intercostal retractions. HEART: Regular rate and rhythm. No murmur. No redness under abdominal folds. ABDOMEN: Soft. Bowel sounds are present. No masses. No tenderness. EXTREMITIES: Bilateral pedal edema more so on the left leg. Patient has a healing wound/decubitus ulcer on the right heel. No significant erythema or edema. Minimal drainage. To the right heel there is a healing wound with no significant erythema or edema surrounding. Minimal drainage. Left lower extremity from upper thigh down has significant erythema and edema with a sending lymphedema. NEUROLOGICAL: Patient is awake, alert and oriented x3. Cranial nerves 2 through 12 are grossly intact. Results Results: Laboratory Results WBC 19.5 k/uL (3.8-10.6) H 02/20/18 19:17 RBC 4.59 m/uL (3.80-5.40) 02/20/18 19:17 Hgb 12.4 gm/dL (11.4-16.0) 02/20/18 19:17 Hct 39.5 % (34.0-46.0) 02/20/18 19:17 MCV 86.0 fL (80.0-100.0) 02/20/18 19:17 MCH 26.9 pg (25.0-35.0) 02/20/18 19:17 MCHC 31.3 g/dL (31.0-37.0) 02/20/18 19:17 RDW 15.7 % (11.5-15.5) H 02/20/18 19:17 Plt Count 261 k/uL (150-450) 02/20/18 19:17 Neutrophils % (Manual) 49 % 02/20/18 19:17 Band Neutrophils % 32 % 02/20/18 19:17 Lymphocytes % (Manual) 5 % 02/20/18 19:17 Monocytes % (Manual) 2 % 02/20/18 19:17 Metamyelocytes % 8 % 02/20/18 19:17 Myelocytes % 5 % 02/20/18 19:17 Neutrophils # (Manual) 15.70 k/uL (1.3-7.7) H 02/20/18 19:17 Lymphocytes # (Manual) 0.98 k/uL (1.0-4.8) L 02/20/18 19:17 Monocytes # (Manual) 0.39 k/uL (0-1.0) 02/20/18 19:17 Metamyelocytes # (Man) 1.56 k/uL (0) H 02/20/18 19:17 Myelocytes # (Manual) 0.98 k/uL (0) H 02/20/18 19:17 Nucleated RBCs 0 /100 WBC (0-0) 02/20/18 19:17 Manual Slide Review Performed 02/20/18 19:17 Toxic Granulation Present 02/20/18 19:17 Hypochromasia (manual) Present 02/20/18 19:17 Poikilocytosis (manual Present 02/20/18 19:17 PT 12.6 sec (9.0-12.0) H 02/20/18 19:17 INR 1.3 (<1.2) H 02/20/18 19:17 APTT 28.8 sec (22.0-30.0) 02/20/18 19:17 Sodium 139 mmol/L (137-145) 02/24/18 11:38 Potassium 3.9 mmol/L (3.5-5.1) 02/24/18 11:38 Chloride 99 mmol/L (98-107) 02/24/18 11:38 Carbon Dioxide 31 mmol/L (22-30) H 02/24/18 11:38 Anion Gap 9 mmol/L 02/24/18 11:38 BUN 16 mg/dL (7-17) 02/24/18 11:38 Creatinine 0.61 mg/dL (0.52-1.04) 02/24/18 11:38 Est GFR (CKD-EPI)AfAm >90 (>60 ml/min/1.73 sqM) 02/24/18 11:38 Est GFR (CKD-EPI)NonAf >90 (>60 ml/min/1.73 sqM) 02/24/18 11:38 Glucose 174 mg/dL (74-99) H 02/24/18 11:38 POC Glucose (mg/dL) 190 mg/dL (75-99) H 02/24/18 11:10 POC Glu [employer] ID Frannie Dent 02/24/18 11:[address] Glu mg/dL 151 02/21/18 06:12 Hemoglobin A1c 6.9 % (4.0-6.0) H 02/21/18 06:12 Lactic Ac Sepsis Rflx Y 02/20/18 22:28 Plasma Lactic Acid Terrence 2.2 mmol/L (0.7-2.0) H* 02/21/18 01:51 Calcium 8.8 mg/dL (8.4-10.2) 02/24/18 11:38 Total Bilirubin 1.0 mg/dL (0.2-1.3) 02/20/18 19:17 AST 81 U/L (14-36) H 02/20/18 19:17 ALT 23 U/L (9-52) 02/20/18 19:17 Alkaline Phosphatase 132 U/L (38-126) H 02/20/18 19:17 Total Protein 7.8 g/dL (6.3-8.2) 02/20/18 19:17 Albumin 3.8 g/dL (3.5-5.0) 02/20/18 19:17 Urine Color Yellow 02/21/18 06:55 Urine Appearance Cloudy (Clear) H 02/21/18 06:55 Urine pH 5.0 (5.0-8.0) 02/21/18 06:55 Ur Specific Homer 1.011 (1.001-1.035) 02/21/18 06:55 Urine Protein Trace (Negative) H 02/21/18 06:55 Urine Glucose (UA) Negative (Negative) 02/21/18 06:55 Urine Ketones Negative (Negative) 02/21/18 06:55 Urine Blood Trace (Negative) H 02/21/18 06:55 Urine Nitrite Negative (Negative) 02/21/18 06:55 Urine Bilirubin Negative (Negative) 02/21/18 06:55 Urine Urobilinogen <2.0 mg/dL (<2.0) 02/21/18 06:55 Ur Leukocyte Esterase Moderate (Negative) H 02/21/18 06:55 Urine RBC 1 /hpf (0-5) 02/21/18 06:55 Urine WBC 20 /hpf (0-5) H 02/21/18 06:55 Ur Squamous Epith Cells 6 /hpf (0-4) H 02/21/18 06:55 Urine Bacteria Occasional /hpf (None) H 02/21/18 06:55 Hyaline Casts 12 /lpf (0-2) H 02/21/18 06:55 Urine Mucus Rare /hpf (None) H 02/21/18 06:55 CBC & Chem 7: 02/20/18 19:17 02/24/18 11:38 Labs: Abnormal Lab Results - Last 24 Hours (Table) 02/23/18 02/23/18 02/23/18 Range/Units 09:30 11:53 17:37 BUN 22 H (7-17) mg/dL Glucose 153 H (74-99) mg/dL POC Glucose (mg/dL) 163 H 134 H (75-99) mg/dL 02/23/18 02/24/18 Range/Units 21:13 07:25 BUN (7-17) mg/dL Glucose (74-99) mg/dL POC Glucose (mg/dL) 159 H 129 H (75-99) mg/dL Microbiology - Last 24 Hours (Table) 02/20/18 19:17 Blood Culture - Preliminary Blood No Growth after 72 hours Assessment and Plan Plan: This is a morbidly obese 72-year-old female who presents to hospital with sepsis secondary to left lower extremity cellulitis with ascending lymphedema with known chronic diabetic ulcers to bilateral heels. Clindamycin will be discontinued and patient started on vancomycin. Local wound care will be in the form of beer honey to the bilateral ulcers and Silvadene to the left lower external he cellulitis. Elevation and Mika wrap to bilateral lower extremities. Wound culture will be obtained. Continue supportive care. Further recommendations as patient progresses. The above dictated assessment and findings were discussed with Dr. Camejo. The impression and plan of care have been directed as dictated. Padmaja Dee nurse practitioner acting as scribe for Dr. Camejo.
[2018-02-24 17:11] LABS: Glucose,Whole Blood 178 mg/dL (75-99)
[2018-02-24 20:37] LABS: Glucose,Whole Blood 159 mg/dL (75-99)
--- NOTE | 2018-02-24 21:11 | PN ---
PROGRESS NOTE DATE OF SERVICE: 02/24/18. PRESENTING COMPLAINT: Redness of left leg. INTERVAL HISTORY: This patient is pretty much bed bound, presented with left lower extremity cellulitis and wound on both the balls of heel. The patient is on IV antibiotics and topical Silvadene. The patient's daughter and are present. Looking also to go to the [facility]. REVIEW OF SYSTEMS: Done for constitutional, cardiovascular, GI, pulmonary; relevant findings as above. The patient had a good bowel movement yesterday. CURRENT MEDICATIONS: Reviewed that include IV vancomycin started today. The patient had been clindamycin. PHYSICAL EXAMINATION: Temperature 97.2, pulse 74, respiratory 18, blood pressure 139/68, pulse ox 98% on room air. GENERAL APPEARANCE: Lying in bed, comfortable. EYES: Pupils equal. Conjunctivae normal. HEENT: External appearance of nose and ears normal. Oral cavity normal. NECK: JVD unable to assess. Mass not palpable. RESPIRATORY: Effort normal. Lungs, distant breath sounds. CARDIOVASCULAR: Heart sounds muffled. Nonpitting edema. ABDOMEN: Distended, soft. Liver and spleen not palpable. PSYCHIATRY: Alert and oriented x3. Mood and affect normal. EXTREMITIES: Lower left lower extremity redness and decub wounds on both the heels, larger one on the left heel. INVESTIGATIONS: Potassium 3.9, BUN 16, creatinine 0.61. Cultures were sent off. ASSESSMENT: 1. Acute severe cellulitis left lower extremity with decubitus ulcer present on the left and the right heel stage II causing sepsis on presentation. 2. Lactic acidosis with good clinical response. 3. Diabetes mellitus type 2 on oral hypoglycemia. 4. Hyperlipidemia. 5. Essential hypertension. 6. Primary osteoarthritis of multiple joints. 7. Hypothyroid. 8. Chronic bilateral lower extremity lymphedema. 9. Acute renal failure probably prerenal from ATN now resolved. 10.Morbid obesity BMI 60.5. PLAN: Care was discussed with the patient's daughter and at bedside. The patient is going to the [facility] when okayed by Dr. Camejo. Cultures were sent off we will wait another 24 hours for the same at least. MMODL / IJN: [id number] /
[2018-02-24] MEDS: CYCLOBENZAPRINE 10 MG TAB PO SCH (22:04)
[2018-02-24] MEDS: PRAVASTATIN SODIUM 20 MG TAB PO SCH (22:04)
--- NOTE | 2018-02-24 22:45 | P.CON ---
Consult Note - . Consult date: 02/24/18 Assessment/Plan:: This is a 72-year-old female patient well-known to ID service as she has been a patient in the wound healing Center under the care of Dr. 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 Her last appointment was on February 14 at which time she underwent debridement and local wound care is in the form of collagen. She does have home care in place on Mondays and Saturday for local wound care. Patient states everything was fine on Saturday but when she woke up on she had significant redness to the left leg. It was sudden onset and she was feeling weak. She ended up sliding off the couch to the floor and couldn't get up. She denies any true fall or injury. She denies having any fever or chills. She has had decreased appetite without nausea vomiting or diarrhea. Patient is found to have a temperature of 101.9, white count of 19.5, INR 1.3. B UN was 45 and creatinine 1.98 with improvement to 0.73. Lactic acid 3.1 and patient is status post 2 L of IV fluid. Repeat lactic acid 2.2. AST 81, alkaline phosphatase 132, ALT 23. Urinalysis was cloudy, leukoesterase moderate, white count 20 and squamous cell 6. Blood culture showing no growth after 72 hours and urine was finalized with no growth after 18 hours. Chest x-ray showed cardiomegaly with no acute cardio pulmonary process. Patient was admitted to the [facility] floor and has received 1 dose of vancomycin, 3 doses of Zosyn is currently on clindamycin. Patient's last wound culture was positive for MRSA resistant to clindamycin. She does state that her weakness and appetite have improved. She continues to have significant pain and erythema to the left lower extremity which she states is not improved. Please see the consult note is dictated by nurse practitioner Mrs. Padmaja Dee. 72-year-old woman who has superobesity has developed a cellulitis to left lower extremity that has developed pain and swelling erythema and some weeping blisters. Local wound care with Silvadene ABD pads in wraps have been applied. Antibiotic therapy with vancomycin is requested given the known history of MRSA to the lower extremities. Patient has had decline of her overall status and will be going to rehab to complete a course of overall care. Cultures will determine if vancomycin therapy is required in that setting. At this time has significant active cellulitis and would expect improvement for her discharge to the facility. I agree with evaluation, assessment and plan as dictated by nurse practitioner Mrs. Padmaja Dee.
[2018-02-25] MEDS: VANCOMYCIN 2,500 MG in SODIUM CHLORIDE 0.9% 500 ML IVPB SCH (06:47)
[2018-02-25 07:38] LABS: Glucose,Whole Blood 155 mg/dL (75-99)
[2018-02-25] MEDS: LEVOTHYROXINE 88 MCG TAB PO SCH (08:34)
[2018-02-25] MEDS: metFORMIN 500 MG TAB PO SCH ×2 (08:34→21:42)
[2018-02-25] MEDS: METOPROLOL SUCCINATE (ER) 50 MG TAB.ER.24H PO SCH (08:34)
[2018-02-25] MEDS: LINAGLIPTIN 5 MG TABLET PO SCH (08:34)
[2018-02-25] MEDS: ASPIRIN 81 MG PO SCH (08:34)
[2018-02-25] MEDS: SILVER sulfADIAZINE Cream 400 GM 1 APPLIC APPLIC TOPICAL SCH ×2 (08:35→21:43)
[2018-02-25] MEDS: PIOGLITAZONE 45 MG TAB PO SCH (08:35)
[2018-02-25] MEDS: POTASSIUM CITRATE 10 MEQ TABLET.ER PO SCH (08:35)
[2018-02-25] MEDS: ACETAMINOPHEN TAB 325 MG TAB PO PRN ×2 (09:11→14:06)
[2018-02-25 09:48] LABS: Anion Gap 8 mmol/L; Blood Urea Nitrogen 15 mg/dL (7-17); Calcium 8.8 mg/dL (8.4-10.2); Carbon Dioxide 30 mmol/L (22-30); Chloride 99 mmol/L (98-107); Glucose 184 mg/dL (74-99); Potassium 4.1 mmol/L (3.5-5.1); Sodium 137 mmol/L (137-145)
[2018-02-25 12:02] LABS: Glucose,Whole Blood 196 mg/dL (75-99)
[2018-02-25] MEDS: MULTIVITAMINS, THERA 1 EACH TAB PO SCH (13:00)
[2018-02-25 17:18] LABS: Glucose,Whole Blood 157 mg/dL (75-99)
[2018-02-25 20:35] LABS: Glucose,Whole Blood 159 mg/dL (75-99)
[2018-02-25] MEDS: PRAVASTATIN SODIUM 20 MG TAB PO SCH (21:42)
[2018-02-25] MEDS: CYCLOBENZAPRINE 10 MG TAB PO SCH (21:43)
--- NOTE | 2018-02-25 23:36 | PN ---
PROGRESS NOTE DATE OF SERVICE: 02/25/2018. PRESENTING COMPLAINT: Redness of the left leg. INTERVAL HISTORY: This patient presented with severe cellulitis left lower extremity and wounds on the both heels. Cultures are pending. On IV antibiotics by Dr. Camejo. Overall feeling better. Looking to go to the [facility]CF at some point. REVIEW OF SYSTEMS: Done for constitutional, cardiovascular, GI, pulmonary, dermatologic; relevant findings as above. CURRENT MEDICATIONS: Reviewed that include IV vancomycin and topical Silvadene. PHYSICAL EXAMINATION: VITAL SIGNS: Temperature 98.2. Pulse 75, respiratory 18, blood pressure 129/64, pulse ox 93 percent on 2 L. GENERAL APPEARANCE: Sitting up, comfortable. EYES: Pupils are equal. Conjunctivae normal. HEENT: External appearance of nose and ears normal. Oral cavity normal. NECK: JVD unable to assess. Mass not palpable. RESPIRATORY: Effort normal. LUNGS: Distant breath sounds. CARDIOVASCULAR: Heart sounds muffled. Nonpitting edema. ABDOMEN: Distended, soft. Liver and spleen not palpable. PSYCHIATRY: Alert and oriented times three. Mood and affect normal. EXTREMITIES: Dressing on the left lower extremity. INVESTIGATIONS: Potassium 4.1, BUN and creatinine normal. Accu-Cheks are noted. Wound cultures coming back negative. ASSESSMENT: 1. Acute severe cellulitis left lower extremity with decubitus ulcer present on both the heels, stage II, causing sepsis on presentation. Cultures are pending. 2. Lactic acidosis with good response. 3. Diabetes mellitus type 2 on oral hypoglycemics. 4. Hyperlipidemia. 5. Essential hypertension. 6. Primary osteoarthritis multiple joints. 7. Hypothyroid. 8. Chronic bilateral lower extremity lymphedema. 9. Acute renal failure probably prerenal, acute tubular necrosis now resolved. 10.Morbid obesity, BMI 60.5. 11.Medical debility for multiple reasons. PLAN: Continue current medication and treatment plan. Once cultures are finalized, patient can be discharged to the ECF. Antibiotics per Dr. Camejo. MMODL / IJN: [id number] /
[2018-02-26] MEDS: LEVOTHYROXINE 88 MCG TAB PO SCH (06:51)
[2018-02-26] MEDS: VANCOMYCIN 2,500 MG in SODIUM CHLORIDE 0.9% 500 ML IVPB SCH (06:51)
[2018-02-26] MEDS: ACETAMINOPHEN TAB 325 MG TAB PO PRN (06:54)
[2018-02-26 07:30] LABS: Glucose,Whole Blood 162 mg/dL (75-99)
[2018-02-26] MEDS: LINAGLIPTIN 5 MG TABLET PO SCH (08:47)
[2018-02-26] MEDS: POTASSIUM CITRATE 10 MEQ TABLET.ER PO SCH (08:47)
[2018-02-26] MEDS: METOPROLOL SUCCINATE (ER) 50 MG TAB.ER.24H PO SCH (08:47)
[2018-02-26] MEDS: PIOGLITAZONE 45 MG TAB PO SCH (08:47)
[2018-02-26] MEDS: ASPIRIN 81 MG PO SCH (08:47)
[2018-02-26] MEDS: metFORMIN 500 MG TAB PO SCH ×2 (08:47→21:19)
[2018-02-26] MEDS: SILVER sulfADIAZINE Cream 400 GM 1 APPLIC APPLIC TOPICAL SCH ×2 (08:48→21:20)
[2018-02-26] MEDS: ETODOLAC 200 MG CAPSULE PO PRN (11:55)
[2018-02-26] MEDS: MULTIVITAMINS, THERA 1 EACH TAB PO SCH (11:55)
[2018-02-26 12:25] LABS: Glucose,Whole Blood 150 mg/dL (75-99)
[2018-02-26 17:01] LABS: Glucose,Whole Blood 164 mg/dL (75-99)
--- NOTE | 2018-02-26 19:52 | PN ---
PROGRESS NOTE DATE OF SERVICE: 02/26/18. PRESENT COMPLAINT: Redness of the left leg. INTERVAL HISTORY: This patient presented with severe cellulitis left lower extremity, wounds on both the heels. Cultures came back negative. He is on IV antibiotics. Awaiting to go to the [facility]. Otherwise, tolerating a diet. REVIEW OF SYSTEMS: Done for constitutional, cardiovascular, GI, pulmonary, dermatologic; relevant findings as above. CURRENT MEDICATIONS: Reviewed that include vancomycin, Silvadene cream. PHYSICAL EXAMINATION: Temperature 97.2, pulse 72, respiration 16, blood pressure 136/62, pulse ox 86 percent on room air. GENERAL APPEARANCE: Lying in bed, awake. EYES: Pupils equal. Conjunctivae normal. HEENT: External appearance of nose and ears normal. Oral cavity normal. NECK: JVD unable to assess. RESPIRATORY: Effort normal. Lungs, decreased breath sounds. CARDIOVASCULAR: Heart sounds muffled. Nonpitting edema. ABDOMEN: Distended, soft. Liver and spleen not palpable. PSYCHIATRY: Alert and oriented x3. Mood and affect normal. EXTREMITIES: Dressing lower extremity. INVESTIGATIONS: Accu-Cheks are noted. ASSESSMENT: 1. Acute severe cellulitis left lower extremity with decubitus ulcer present on both the heels stage II causing sepsis on presentation with clinical response. 2. Lactic acidosis, good response. 3. Diabetes mellitus type 2 on oral hypoglycemic. 4. Hyperlipidemia. 5. Essential hypertension. 6. Primary osteoarthritis multiple joints. 7. Hypothyroid. 8. Chronic bilateral lower extremity lymphedema. 9. Acute renal failure, probably prerenal, acute tubular necrosis, now resolved. 10.Morbid obesity, BMI 60.5. 11.Multiple medical debility for multiple reasons. PLAN: Continue current medication and treatment plan. Antibiotics per Dr. Camejo. Awaiting the patient to go to the [facility]. MMODL / IJN: [id number] /
[2018-02-26 21:04] LABS: Glucose,Whole Blood 159 mg/dL (75-99)
[2018-02-26] MEDS: CYCLOBENZAPRINE 10 MG TAB PO SCH (21:20)
[2018-02-26] MEDS: PRAVASTATIN SODIUM 20 MG TAB PO SCH (21:20)
--- NOTE | 2018-02-26 23:33 | P.PN ---
Subjective Progress Note Date: 02/26/18 This is a 72-year-old female patient well-known to ID service as she has been a patient in the wound healing Center under the care of Dr. 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 Her last appointment was on February 14 at which time she underwent debridement and local wound care is in the form of collagen. She does have home care in place on Mondays and Saturday for local wound care. Patient states everything was fine on Saturday but when she woke up on she had significant redness to the left leg. It was sudden onset and she was feeling weak. She ended up sliding off the couch to the floor and couldn't get up. She denies any true fall or injury. She denies having any fever or chills. She has had decreased appetite without nausea vomiting or diarrhea. Patient is found to have a temperature of 101.9, white count of 19.5, INR 1.3. B UN was 45 and creatinine 1.98 with improvement to 0.73. Lactic acid 3.1 and patient is status post 2 L of IV fluid. Repeat lactic acid 2.2. AST 81, alkaline phosphatase 132, ALT 23. Urinalysis was cloudy, leukoesterase moderate, white count 20 and squamous cell 6. Blood culture showing no growth after 72 hours and urine was finalized with no growth after 18 hours. Chest x-ray showed cardiomegaly with no acute cardio pulmonary process. Patient was admitted to the [facility] floor and has received 1 dose of vancomycin, 3 doses of Zosyn is currently on clindamycin. Patient's last wound culture was positive for MRSA resistant to clindamycin. She does state that her weakness and appetite have improved. She continues to have significant pain and erythema to the left lower extremity which she states is not improved. 02/26/2018 reveals this pleasant woman to be feeling slightly better. She been able to sit up and have her meal. She denying other acute new complaints but continues to have rather copious drainage from the left leg which is painful. Objective - Vital Signs Vital signs: Vital Signs Temp 97.2 F L 02/26/18 14:55 Pulse 78 02/26/18 14:55 Resp 16 02/26/18 14:55 BP 136/62 02/26/18 14:55 Pulse Ox 93 L 02/26/18 15:13 Intake & Output 02/26/18 02/26/18 02/27/18 06:59 18:59 06:59 Other: Voiding Method Toilet Toilet Bedpan Bedpan # Voids 2 4 1 # Bowel Movements 1 - Exam Gen: This is a morbidly obese 72-year-old female. She is sitting up in bed and breakfast and appears to be comfortable and in no acute distress. No difficulty swallowing or breathing noted. HEENT: Head is atraumatic, normocephalic. Pupils equal, round. Sclerae is anicteric. Intent of a pink. Mucous members of the mouth are moist. NECK: Supple. No JVD. No lymphadenopathy. No thyromegaly. LUNGS: Clear to auscultation. No wheezes or rhonchi. No intercostal retractions. HEART: Regular rate and rhythm. No murmur. No redness under abdominal folds. ABDOMEN: Soft. Bowel sounds are present. No masses. No tenderness. EXTREMITIES: Bilateral pedal edema more so on the left leg. Patient has a healing wound/decubitus ulcer on the right heel. No significant erythema or edema. Minimal drainage. To the right heel there is a healing wound with no significant erythema or edema surrounding. Minimal drainage. Left lower extremity from upper thigh down has significant erythema and edema with an ascending lymphedema. NEUROLOGICAL: Patient is awake, alert and oriented x3. Cranial nerves 2 through 12 are grossly intact. - Labs CBC & Chem 7: 02/20/18 19:17 02/25/18 09:13 Labs: Abnormal Lab Results - Last 24 Hours (Table) 02/26/18 02/26/18 02/26/18 Range/Units 07:25 12:23 16:59 POC Glucose (mg/dL) 162 H 150 H 164 H (75-99) mg/dL 02/26/18 Range/Units 21:02 POC Glucose (mg/dL) 159 H (75-99) mg/dL Microbiology - Last 24 Hours (Table) 02/20/18 19:17 Blood Culture - Final Blood No Growth after 144 hours 02/24/18 10:00 Anaerobic Culture - Preliminary Leg - Left 02/24/18 10:00 Gram Stain - Final Leg - Left Wound Culture - Final Laboratory Results WBC 19.5 k/uL (3.8-10.6) H 02/20/18 19:17 RBC 4.59 m/uL (3.80-5.40) 02/20/18 19:17 Hgb 12.4 gm/dL (11.4-16.0) 02/20/18 19:17 Hct 39.5 % (34.0-46.0) 02/20/18 19:17 MCV 86.0 fL (80.0-100.0) 02/20/18 19:17 MCH 26.9 pg (25.0-35.0) 02/20/18 19:17 MCHC 31.3 g/dL (31.0-37.0) 02/20/18 19:17 RDW 15.7 % (11.5-15.5) H 02/20/18 19:17 Plt Count 261 k/uL (150-450) 02/20/18 19:17 Neutrophils % (Manual) 49 % 02/20/18 19:17 Band Neutrophils % 32 % 02/20/18 19:17 Lymphocytes % (Manual) 5 % 02/20/18 19:17 Monocytes % (Manual) 2 % 02/20/18 19:17 Metamyelocytes % 8 % 02/20/18 19:17 Myelocytes % 5 % 02/20/18 19:17 Neutrophils # (Manual) 15.70 k/uL (1.3-7.7) H 02/20/18 19:17 Lymphocytes # (Manual) 0.98 k/uL (1.0-4.8) L 02/20/18 19:17 Monocytes # (Manual) 0.39 k/uL (0-1.0) 02/20/18 19:17 Metamyelocytes # (Man) 1.56 k/uL (0) H 02/20/18 19:17 Myelocytes # (Manual) 0.98 k/uL (0) H 02/20/18 19:17 Nucleated RBCs 0 /100 WBC (0-0) 02/20/18 19:17 Manual Slide Review Performed 02/20/18 19:17 Toxic Granulation Present 02/20/18 19:17 Hypochromasia (manual) Present 02/20/18 19:17 Poikilocytosis (manual Present 02/20/18 19:17 PT 12.6 sec (9.0-12.0) H 02/20/18 19:17 INR 1.3 (<1.2) H 02/20/18 19:17 APTT 28.8 sec (22.0-30.0) 02/20/18 19:17 Sodium 137 mmol/L (137-145) 02/25/18 09:13 Potassium 4.1 mmol/L (3.5-5.1) 02/25/18 09:13 Chloride 99 mmol/L (98-107) 02/25/18 09:13 Carbon Dioxide 30 mmol/L (22-30) 02/25/18 09:13 Anion Gap 8 mmol/L 02/25/18 09:13 BUN 15 mg/dL (7-17) 02/25/18 09:13 Creatinine 0.60 mg/dL (0.52-1.04) 02/25/18 09:13 Est GFR (CKD-EPI)AfAm >90 (>60 ml/min/1.73 sqM) 02/25/18 09:13 Est GFR (CKD-EPI)NonAf >90 (>60 ml/min/1.73 sqM) 02/25/18 09:13 Glucose 184 mg/dL (74-99) H 02/25/18 09:13 POC Glucose (mg/dL) 159 mg/dL (75-99) H 02/26/18 21:02 POC Glu [employer] Machine Operator rAlene [place] 02/26/18 21:[address] Glu mg/dL 151 02/21/18 06:12 Hemoglobin A1c 6.9 % (4.0-6.0) H 02/21/18 06:12 Lactic Ac Sepsis Rflx Y 02/20/18 22:28 Plasma Lactic Acid Terrence 2.2 mmol/L (0.7-2.0) H* 02/21/18 01:51 Calcium 8.8 mg/dL (8.4-10.2) 02/25/18 09:13 Total Bilirubin 1.0 mg/dL (0.2-1.3) 02/20/18 19:17 AST 81 U/L (14-36) H 02/20/18 19:17 ALT 23 U/L (9-52) 02/20/18 19:17 Alkaline Phosphatase 132 U/L (38-126) H 02/20/18 19:17 Total Protein 7.8 g/dL (6.3-8.2) 02/20/18 19:17 Albumin 3.8 g/dL (3.5-5.0) 02/20/18 19:17 Urine Color Yellow 02/21/18 06:55 Urine Appearance Cloudy (Clear) H 02/21/18 06:55 Urine pH 5.0 (5.0-8.0) 02/21/18 06:55 Ur Specific [place] 1.011 (1.001-1.035) 02/21/18 06:55 Urine Protein Trace (Negative) H 02/21/18 06:55 Urine Glucose (UA) Negative (Negative) 02/21/18 06:55 Urine Ketones Negative (Negative) 02/21/18 06:55 Urine Blood Trace (Negative) H 02/21/18 06:55 Urine Nitrite Negative (Negative) 02/21/18 06:55 Urine Bilirubin Negative (Negative) 02/21/18 06:55 Urine Urobilinogen <2.0 mg/dL (<2.0) 02/21/18 06:55 Ur Leukocyte Esterase Moderate (Negative) H 02/21/18 06:55 Urine RBC 1 /hpf (0-5) 02/21/18 06:55 Urine WBC 20 /hpf (0-5) H 02/21/18 06:55 Ur Squamous Epith Cells 6 /hpf (0-4) H 02/21/18 06:55 Urine Bacteria Occasional /hpf (None) H 02/21/18 06:55 Hyaline Casts 12 /lpf (0-2) H 02/21/18 06:55 Urine Mucus Rare /hpf (None) H 02/21/18 06:55 Microbiology 02/20/18 19:17 Blood Blood Culture - Final No Growth after 144 hours 02/24/18 10:00 Leg - Left Anaerobic Culture - Preliminary 02/24/18 10:00 Leg - Left Gram Stain - Final 02/24/18 10:00 Leg - Left Wound Culture - Final 02/21/18 06:55 Urine,Ureter Urine Culture - Final Assessment and Plan (1) Cellulitis of left leg Narrative/Plan: 72-year-old woman who has superobesity has developed a cellulitis to left lower extremity that has developed pain and swelling erythema and some weeping blisters. Local wound care with Silvadene ABD pads in wraps have been applied. Antibiotic therapy with vancomycin is requested given the known history of MRSA to the lower extremities. Patient has had decline of her overall status and will be going to rehab to complete a course of overall care. Cultures will determine if vancomycin therapy is required in that setting. At this time has significant active cellulitis and would expect improvement for her discharge to the facility. 02/26/2018 patient is having some slight improvement. She's a little less discomfort but still having rather copious drainage. She is responding to antibiotic therapy and that she is having no fever. Would plan on a course of further antibiotic therapy over the next 7-10 days until the leg and the blisters have improved. With the significant lymphedema, and lipedema is potentially take longer to have adequate resolution. Continue with the topical cream and wrap as she tolerates. Elevate the limb as much as possible when she is resting. She was on an air bed at this prevented her from moving she's back to more standard mattress. Cultures in process negative so far. Current Visit: Yes Status: Acute Code(s): L03.116 - CELLULITIS OF LEFT LOWER LIMB SNOMED Code(s): 298735369
[2018-02-27] MEDS: VANCOMYCIN 2,500 MG in SODIUM CHLORIDE 0.9% 500 ML IVPB SCH (05:53)
[2018-02-27] MEDS: LEVOTHYROXINE 88 MCG TAB PO SCH (06:34)
[2018-02-27 07:36] LABS: Glucose,Whole Blood 154 mg/dL (75-99)
[2018-02-27] MEDS: METOPROLOL SUCCINATE (ER) 50 MG TAB.ER.24H PO SCH (08:07)
[2018-02-27] MEDS: LINAGLIPTIN 5 MG TABLET PO SCH (08:07)
[2018-02-27] MEDS: PIOGLITAZONE 45 MG TAB PO SCH (08:07)
[2018-02-27] MEDS: metFORMIN 500 MG TAB PO SCH (08:07)
[2018-02-27] MEDS: POTASSIUM CITRATE 10 MEQ TABLET.ER PO SCH (08:07)
[2018-02-27] MEDS: MULTIVITAMINS, THERA 1 EACH TAB PO SCH (08:07)
[2018-02-27] MEDS: SILVER sulfADIAZINE Cream 400 GM 1 APPLIC APPLIC TOPICAL SCH (08:08)
[2018-02-27] MEDS: ASPIRIN 81 MG PO SCH (08:08)
[2018-02-27 12:02] LABS: Glucose,Whole Blood 143 mg/dL (75-99)
[2018-02-27] MEDS ORDERED: LIDOCAINE 1% INJ 10MG/ML (20 ML MDV) SQ ONE (12:51)
--- NOTE | 2018-02-27 13:29 | IR ---
EXAMINATION TYPE: IR cvc insert >=5 years DATE OF EXAM: 02/27/2018 COMPARISON: NONE CLINICAL HISTORY: Infection Needs long-term intravenous access for antibiotics. PROCEDURE: After informed consent, the skin overlying the left basilic vein was localized with ultrasound and no almaz to be compressible and patent. An ultrasound image was obtained and submitted on the patient's c seymour. The overlying skin was prepped and draped and Lidocaine was used for local anesthesia. A skin willam was made with a scalpel. Access was gained to the vein under ultrasound guidance with a 21 gau ge needle and a 0.018 inch wire was advanced. Access site was dilated with Peel-Away sheath and cath eter tailored to the appropriate length and advanced such that the distal tip is at the cavoatrial ju nction. Spot image was obtained verifying placement. Catheter was fixed to the skin and a sterile d ressing was placed following hemostasis. Catheter was aspirated and flushed with saline. Patient wa s discharged in stable condition without complication. Maximal barrier technique is utilized. Ultras ound image is documented on the chart. Ultrasound used with sterile technique. Fluoro time and fluoroscopic images submitted to document procedure: 0.6 minutes fluoroscopy time, 18 0 intraoperative C-arm images document the procedure IMPRESSION: STATUS POST ULTRASOUND AND FLUOROSCOPIC GUIDED PICC LINE PLACEMENT, READY FOR USE. THIS PROCEDURE WAS PERFORMED BY THE UNDERSIGNED.
[2018-02-27] MEDS ORDERED: LOSARTAN 25 MG TAB PO STA (14:40)
--- NOTE | 2018-02-27 15:29 | DS ---
DISCHARGE SUMMARY DATE OF ADMISSION: 02/20/2018 DATE OF DISCHARGE: 02/27/2018 FINAL DIAGNOSES: 1. Acute severe cellulitis left lower extremity with decubitus ulcer present on both heels, stage II, causing sepsis present on admission. 2. Lactic acidosis, present on admission. 3. Diabetes mellitus type 2, on oral hypoglycemic. 4. Hyperlipidemia. 5. Essential hypertension. 6. Primary osteoarthritis of multiple joints. 7. Hypothyroid. 8. Chronic bilateral lower extremity lymphedema. 9. Acute renal failure probably prerenal acute and acute tubular necrosis, now resolved. 10.Morbid obesity BMI 60.5. 11.Advanced medical debility for multiple reasons. HOSPITAL COURSE: This patient is pretty much bed bound. Presented with cellulitis of the left lower extremity and decub ulcer on both the heels. Cultures were negative. Treated with IV vancomycin and Silvadene to which she responded well. Local wound care was done by Dr. Camejo. Patient is doing much better at the time of discharge. Patient presented with cellulitis of the left lower extremity, and doing much better at the time of discharge. Patient's creatinine is 1.98 down to 0.6 by the time of discharge. Care was discussed with the patient. PHYSICAL EXAMINATION: Temperature 97, pulse 87, respiration 20, blood pressure 156/68, pulse ox 92%on room air. Lying in bed, awake. LUNGS: Distant breath sounds. CARDIOVASCULAR SYSTEM: First and second sounds are normal. PSYCH: AO x3. INVESTIGATION: BUN and creatinine are normal. DISCHARGE MEDICATIONS: 1. Aspirin 81 mg a day. 2. Synthroid 88 mcg a day. 3. Multivitamin 1 tablet a day. 4. Actos 45 mg a day. 5. Potassium 10 mEq a day. 6. Pravachol 20 mg q.h.s. 7. Cozaar 25 mg p.o. daily. 8. Metformin 1000 mg p.o. b.i.d. 9. Tradjenta 5 mg p.o. daily. 10.Toprol-XL 50 mg a day. 11.[place]-3 one thousand mg p.o. daily. 12.Flexeril 10 mg p.o. q.h.s. 13.Cataflam 50 mg t.i.d. p.r.n. 14.Milk of magnesia 2400 mg p.o. daily p.r.n. 15.Melatonin 3 mg q.h.s. p.r.n. 16.Silvadene 1% topical b.i.d. 17.Vancomycin 25 mg IV piggyback q.24 for 10 bags. LABS: CBC, BMP in 4-5 days. DISPOSITION: [facility]. FOLLOWUP: Follow up with Dr. Solorzano after discharge from [facility]. MMODL / IJN: [id number] /
[2018-02-27 15:31] VITALS: BP 138/55; PULSE 77; RESP 22; TEMP 96.9
[2018-02-27 17:40] LABS: Glucose,Whole Blood 135 mg/dL (75-99)
--- NOTE | 2018-02-27 23:16 | P.PN ---
Subjective Progress Note Date: 02/27/18 This is a 72-year-old female patient well-known to ID service as she has been a patient in the wound healing Center under the care of Dr. 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 Her last appointment was on February 14 at which time she underwent debridement and local wound care is in the form of collagen. She does have home care in place on Mondays and Saturday for local wound care. Patient states everything was fine on Saturday but when she woke up on she had significant redness to the left leg. It was sudden onset and she was feeling weak. She ended up sliding off the couch to the floor and couldn't get up. She denies any true fall or injury. She denies having any fever or chills. She has had decreased appetite without nausea vomiting or diarrhea. Patient is found to have a temperature of 101.9, white count of 19.5, INR 1.3. B UN was 45 and creatinine 1.98 with improvement to 0.73. Lactic acid 3.1 and patient is status post 2 L of IV fluid. Repeat lactic acid 2.2. AST 81, alkaline phosphatase 132, ALT 23. Urinalysis was cloudy, leukoesterase moderate, white count 20 and squamous cell 6. Blood culture showing no growth after 72 hours and urine was finalized with no growth after 18 hours. Chest x-ray showed cardiomegaly with no acute cardio pulmonary process. Patient was admitted to the [facility] floor and has received 1 dose of vancomycin, 3 doses of Zosyn is currently on clindamycin. Patient's last wound culture was positive for MRSA resistant to clindamycin. She does state that her weakness and appetite have improved. She continues to have significant pain and erythema to the left lower extremity which she states is not improved. 02/26/2018 reveals this pleasant woman to be feeling slightly better. She been able to sit up and have her meal. She denying other acute new complaints but continues to have rather copious drainage from the left leg which is painful. 02/27/2018 patient has had further improvement. Plans for her transfer to extended care today. Antibiotic therapy and wound care are requested. Objective - Vital Signs Vital signs: Vital Signs Temp 96.9 F L 02/27/18 15:00 Pulse 77 02/27/18 15:00 Resp 22 02/27/18 15:00 BP 138/55 02/27/18 15:00 Pulse Ox 91 L 02/27/18 15:00 Intake & Output 02/27/18 02/27/18 02/28/18 06:59 18:59 06:59 Intake Total 600 700 Balance 600 700 Intake: IV 500 Vancomycin 2,500 mg In 500 Sodium Chloride 0.9% 500 ml @ 167 mls/hr IVPB DAILY@0600 [facility] Rx#: [id number] Oral 600 200 Other: # Voids 1 - Exam Gen: This is a morbidly obese 72-year-old female. She is sitting up in bed and breakfast and appears to be comfortable and in no acute distress. No difficulty swallowing or breathing noted. HEENT: Head is atraumatic, normocephalic. Pupils equal, round. Sclerae is anicteric. Intent of a pink. Mucous members of the mouth are moist. NECK: Supple. No JVD. No lymphadenopathy. No thyromegaly. LUNGS: Clear to auscultation. No wheezes or rhonchi. No intercostal retractions. HEART: Regular rate and rhythm. No murmur. No redness under abdominal folds. ABDOMEN: Soft. Bowel sounds are present. No masses. No tenderness. EXTREMITIES: Bilateral pedal edema more so on the left leg. Patient has a healing wound/decubitus ulcer on the right heel. No significant erythema or edema. Minimal drainage. To the right heel there is a healing wound with no significant erythema or edema surrounding. Minimal drainage. Left lower extremity from upper thigh down has significant erythema and edema with an ascending lymphedema. NEUROLOGICAL: Patient is awake, alert and oriented x3. Cranial nerves 2 through 12 are grossly intact. - Labs CBC & Chem 7: 02/20/18 19:17 02/25/18 09:13 Labs: Abnormal Lab Results - Last 24 Hours (Table) 02/27/18 02/27/18 02/27/18 Range/Units 07:30 11:59 17:35 POC Glucose (mg/dL) 154 H 143 H 135 H (75-99) mg/dL Microbiology - Last 24 Hours (Table) 02/20/18 19:17 Blood Culture - Final Blood No Growth after 144 hours Laboratory Results WBC 19.5 k/uL (3.8-10.6) H 02/20/18 19:17 RBC 4.59 m/uL (3.80-5.40) 02/20/18 19:17 Hgb 12.4 gm/dL (11.4-16.0) 02/20/18 19:17 Hct 39.5 % (34.0-46.0) 02/20/18 19:17 MCV 86.0 fL (80.0-100.0) 02/20/18 19:17 MCH 26.9 pg (25.0-35.0) 02/20/18 19:17 MCHC 31.3 g/dL (31.0-37.0) 02/20/18 19:17 RDW 15.7 % (11.5-15.5) H 02/20/18 19:17 Plt Count 261 k/uL (150-450) 02/20/18 19:17 Neutrophils % (Manual) 49 % 02/20/18 19:17 Band Neutrophils % 32 % 02/20/18 19:17 Lymphocytes % (Manual) 5 % 02/20/18 19:17 Monocytes % (Manual) 2 % 02/20/18 19:17 Metamyelocytes % 8 % 02/20/18 19:17 Myelocytes % 5 % 02/20/18 19:17 Neutrophils # (Manual) 15.70 k/uL (1.3-7.7) H 02/20/18 19:17 Lymphocytes # (Manual) 0.98 k/uL (1.0-4.8) L 02/20/18 19:17 Monocytes # (Manual) 0.39 k/uL (0-1.0) 02/20/18 19:17 Metamyelocytes # (Man) 1.56 k/uL (0) H 02/20/18 19:17 Myelocytes # (Manual) 0.98 k/uL (0) H 02/20/18 19:17 Nucleated RBCs 0 /100 WBC (0-0) 02/20/18 19:17 Manual Slide Review Performed 02/20/18 19:17 Toxic Granulation Present 02/20/18 19:17 Hypochromasia (manual) Present 02/20/18 19:17 Poikilocytosis (manual Present 02/20/18 19:17 PT 12.6 sec (9.0-12.0) H 02/20/18 19:17 INR 1.3 (<1.2) H 02/20/18 19:17 APTT 28.8 sec (22.0-30.0) 02/20/18 19:17 Sodium 137 mmol/L (137-145) 02/25/18 09:13 Potassium 4.1 mmol/L (3.5-5.1) 02/25/18 09:13 Chloride 99 mmol/L (98-107) 02/25/18 09:13 Carbon Dioxide 30 mmol/L (22-30) 02/25/18 09:13 Anion Gap 8 mmol/L 02/25/18 09:13 BUN 15 mg/dL (7-17) 02/25/18 09:13 Creatinine 0.60 mg/dL (0.52-1.04) 02/25/18 09:13 Est GFR (CKD-EPI)AfAm >90 (>60 ml/min/1.73 sqM) 02/25/18 09:13 Est GFR (CKD-EPI)NonAf >90 (>60 ml/min/1.73 sqM) 02/25/18 09:13 Glucose 184 mg/dL (74-99) H 02/25/18 09:13 POC Glucose (mg/dL) 135 mg/dL (75-99) H 02/27/18 17:35 POC Glu Ship Mate ID Angelique Lou 02/27/18 17:[address] Glu mg/dL 151 02/21/18 06:12 Hemoglobin A1c 6.9 % (4.0-6.0) H 02/21/18 06:12 Lactic Ac Sepsis Rflx Y 02/20/18 22:28 Plasma Lactic Acid Terrence 2.2 mmol/L (0.7-2.0) H* 02/21/18 01:51 Calcium 8.8 mg/dL (8.4-10.2) 02/25/18 09:13 Total Bilirubin 1.0 mg/dL (0.2-1.3) 02/20/18 19:17 AST 81 U/L (14-36) H 02/20/18 19:17 ALT 23 U/L (9-52) 02/20/18 19:17 Alkaline Phosphatase 132 U/L (38-126) H 10/04/18 19:17 Total Protein 7.8 g/dL (6.3-8.2) 02/20/18 19:17 Albumin 3.8 g/dL (3.5-5.0) 02/20/18 19:17 Urine Color Yellow 02/21/18 06:55 Urine Appearance Cloudy (Clear) H 02/21/18 06:55 Urine pH 5.0 (5.0-8.0) 02/21/18 06:55 Ur Specific [place] 1.011 (1.001-1.035) 02/21/18 06:55 Urine Protein Trace (Negative) H 02/21/18 06:55 Urine Glucose (UA) Negative (Negative) 02/21/18 06:55 Urine Ketones Negative (Negative) 02/21/18 06:55 Urine Blood Trace (Negative) H 02/21/18 06:55 Urine Nitrite Negative (Negative) 02/21/18 06:55 Urine Bilirubin Negative (Negative) 02/21/18 06:55 Urine Urobilinogen <2.0 mg/dL (<2.0) 02/21/18 06:55 Ur Leukocyte Esterase Moderate (Negative) H 02/21/18 06:55 Urine RBC 1 /hpf (0-5) 02/21/18 06:55 Urine WBC 20 /hpf (0-5) H 02/21/18 06:55 Ur Squamous Epith Cells 6 /hpf (0-4) H 02/21/18 06:55 Urine Bacteria Occasional /hpf (None) H 02/21/18 06:55 Hyaline Casts 12 /lpf (0-2) H 02/21/18 06:55 Urine Mucus Rare /hpf (None) H 02/21/18 06:55 Microbiology 02/20/18 19:17 Blood Blood Culture - Final No Growth after 144 hours 02/24/18 10:00 Leg - Left Anaerobic Culture - Preliminary 02/24/18 10:00 Leg - Left Gram Stain - Final 02/24/18 10:00 Leg - Left Wound Culture - Final 02/21/18 06:55 Urine,Ureter Urine Culture - Final Assessment and Plan (1) Cellulitis of left leg Narrative/Plan: 72-year-old woman who has superobesity has developed a cellulitis to left lower extremity that has developed pain and swelling erythema and some weeping blisters. Local wound care with Silvadene ABD pads in wraps have been applied. Antibiotic therapy with vancomycin is requested given the known history of MRSA to the lower extremities. Patient has had decline of her overall status and will be going to rehab to complete a course of overall care. Cultures will determine if vancomycin therapy is required in that setting. At this time has significant active cellulitis and would expect improvement for her discharge to the facility. 02/26/2018 patient is having some slight improvement. She's a little less discomfort but still having rather copious drainage. She is responding to antibiotic therapy and that she is having no fever. Would plan on a course of further antibiotic therapy over the next 7-10 days until the leg and the blisters have improved. With the significant lymphedema, and lipedema is potentially take longer to have adequate resolution. Continue with the topical cream and wrap as she tolerates. Elevate the limb as much as possible when she is resting. She was on an air bed at this prevented her from moving she's back to more standard mattress. Cultures in process negative so far. 02/27/2018 patient has had some further improvement and is being readied for discharge to the extended care facility. 10 days of vancomycin and requested at the extended care facility. Wound care with Silvadene and a wrap and elevation are being requested. She'll have rapid improvement in this timeframe. Status: Acute Code(s): L03.116 - CELLULITIS OF LEFT LOWER LIMB SNOMED Code(s ): 761172175
== END 2018-02-27 17:58 | DRG 871 ==
LOC: EC 18:23 → 6SEL 20:19 → 4MS4W 02-21 23:26
PROVIDERS: ADMIT Hospitalist; ATTEND Hospitalist
PROC: 02HV33Z Insertion of Infusion Device into Superior Vena Cava, Percutaneous Approach (ICD-10-PCS; principal; 2018-02-20)
DX: A41.9 Sepsis, unspecified organism (principal); N17.0 Acute kidney failure with tubular necrosis; L03.116 Cellulitis of left lower limb; Z68.44 Body mass index [BMI] 60.0-69.9, adult; E03.9 Hypothyroidism, unspecified; E11.621 Type 2 diabetes mellitus with foot ulcer; E66.01 Morbid (severe) obesity due to excess calories; E78.5 Hyperlipidemia, unspecified; I11.9 Hypertensive heart disease without heart failure; I89.0 Lymphedema, not elsewhere classified; L89.622 Pressure ulcer of left heel, stage 2; L89.612 Pressure ulcer of right heel, stage 2; M15.9 Polyosteoarthritis, unspecified; Z79.82 Long term (current) use of aspirin; Z79.84 Long term (current) use of oral hypoglycemic drugs; Z79.890 Hormone replacement therapy; Z88.1 Allergy status to other antibiotic agents; Z88.2 Allergy status to sulfonamides; Z96.653 Presence of artificial knee joint, bilateral; Z96.641 Presence of right artificial hip joint; Z90.710 Acquired absence of both cervix and uterus; Z86.14 Personal history of Methicillin resistant Staphylococcus aureus infection; Z74.01 Bed confinement status; Z98.42 Cataract extraction status, left eye; Z96.1 Presence of intraocular lens; Z79.899 Other long term (current) drug therapy; Z83.3 Family history of diabetes mellitus; Z80.9 Family history of malignant neoplasm, unspecified; W06.XXXA Fall from bed, initial encounter
CPT/HCPCS: 36415; 71045; 80048; 80053; 81001; 83036; 83605; 85025; 85610; 85730; 87040; 87070; 87075; 87086; 87205; 93005; 96365; 96366; 99285

== ENCOUNTER 2018-03-21 11:08 | Inpatient (IN) | payer MEDICARE, OTHER ==
[2018-03-21 13:08] LABS: Anisocytosis Slight; Basophils % (A) 0 %; Eosinophils # (A) 0.3 k/uL (0-0.7); Eosinophils % (A) 4 %; HCT 33.1 % (34.0-46.0); HGB 10.2 gm/dL (11.4-16.0); Hypochromasia Moderate; Lymphocytes # (A) 2.1 k/uL (1.0-4.8); Lymphocytes % (A) 23 %; MCH 26.9 pg (25.0-35.0); MCHC 30.9 g/dL (31.0-37.0); MCV 86.9 fL (80.0-100.0); Mean Platelet Volume 7.1; Monocytes # (A) 0.6 k/uL (0-1.0); Monocytes % (A) 6 %; Neutrophils # (A) 5.8 k/uL (1.3-7.7); Neutrophils % (A) 64 %; Platelet Count 403 k/uL (150-450); RBC 3.81 m/uL (3.80-5.40); RDW 16.9 % (11.5-15.5); WBC 8.9 k/uL (3.8-10.6)
[2018-03-21 13:30] LABS: INR 1.1 (<1.2)
[2018-03-21 13:31] LABS: Partial Thromboplastin Time 25.2 sec (22.0-30.0); Prothrombin Time 10.9 sec (9.0-12.0)
[2018-03-21] MEDS ORDERED: VANCOMYCIN IV PER PHARMACY 1 EACH MISC MISCELLANE PRN (13:51)
[2018-03-21] MEDS ORDERED: PIPERACILLIN-TAZOBACTAM 3.375 GM in SODIUM CHLORIDE 0.9% 100 ML IVPB STA (13:51)
[2018-03-21 13:54] LABS: Albumin 3.1 g/dL (3.5-5.0); Calcium 9.2 mg/dL (8.4-10.2); Potassium 4.8 mmol/L (3.5-5.1); Total Bilirubin 0.4 mg/dL (0.2-1.3); Total Protein 7.7 g/dL (6.3-8.2)
--- NOTE | 2018-03-21 13:57 | ED ---
Recheck HPI - General Chief Complaint: Recheck/Abnormal Lab/Rx Stated Complaint: cellulitis Time Seen by Provider: 03/21/18 12:15 Source: patient, RN notes reviewed Mode of arrival: ambulatory Limitations: no limitations - History of Present Illness Initial Comments: 72-year-old female presents emergency Department for foot wound. Patient has been followed by Dr. Doran at the wound center was seen at once and today sent here for admission. Patient has failed outpatient treatment of this. Patient has had recent debridement and antibiotic use. Patient denies any fevers or chills. She does have increased redness to her leg denies any increased pain. Patient is a known diabetic. - Related Data Home Medications Medication Instructions Recorded Confirmed Aspirin 81 mg PO DAILY 02/26/14 03/21/18 Levothyroxine Sodium [Synthroid] 88 mcg PO DAILY 02/26/14 03/21/18 Multivitamins, Thera [Multivitamin 1 tab PO DAILY 02/26/14 03/21/18 (formulary)] Pioglitazone HCl [Actos] 45 mg PO DAILY 02/26/14 03/21/18 Potassium Chloride [Klor-Con 10] 10 meq PO DAILY 02/26/14 03/21/18 Pravastatin Sodium [Pravachol] 20 mg PO HS 02/26/14 03/21/18 Losartan [Cozaar] 25 mg PO DAILY 11/08/14 03/21/18 metFORMIN HCL 1,000 mg PO BID 11/30/16 03/21/18 Linagliptin [Tradjenta] 5 mg PO DAILY 12/14/16 03/21/18 Metoprolol Succinate (ER) [Toprol 50 mg PO DAILY 02/20/18 03/21/18 XL] [place]-3 Fatty Acids [[place]-3] 1,000 mg PO DAILY 02/20/18 03/21/18 Cyclobenzaprine HCl 10 mg PO HS 02/22/18 03/21/18 Diclofenac Potassium [Cataflam] 50 mg PO TID PRN 02/22/18 03/21/18 Acetaminophen [Tylenol] 325 mg PO Q6HR PRN 03/07/18 03/21/18 Magnesium Oxide 400 mg PO BID 03/21/18 03/21/18 Pravastatin Sodium [Pravachol] 40 mg PO HS 03/21/18 03/21/18 SILVER sulfADIAZINE Cream 1 applic TOPICAL DAILY 03/21/18 03/21/18 [Silvadene 1% Cream] Previous Rx's Medication Instructions Recorded Magnesium Hydroxide [Milk of 2,400 mg PO DAILY PRN ml 02/27/18 Magnesia Concentrate] Melatonin 3 mg PO HS PRN tablet 02/27/18 SILVER sulfADIAZINE Cream 1 applic TOPICAL BID applic 02/27/18 [Silvadene 1% Cream] Allergies Allergy/AdvReac Type Severity Reaction Status Date / Time sulfamethoxazole Allergy Dyspnea Verified 03/21/18 13:02 [From Bactrim] trimethoprim [From Bactrim] Allergy Dyspnea Verified 03/21/18 13:02 Review of Systems ROS Statement: Those systems with pertinent positive or pertinent negative responses have been documented in the HPI. ROS Other: All systems not noted in ROS Statement are negative. Past Medical History Past Medical History: Diabetes Mellitus, Hyperlipidemia, Hypertension, Osteoarthritis (OA), Thyroid Disorder Additional Past Medical History / Comment(s): wound bilat. heels, cellulitis, Chronic lymphedema with lymphedema bilateral lower extremities History of Any Multi-Drug Resistant Organisms: MRSA Date of last positivie culture/infection: 08/23/17 MDRO Source:: HEEL Past Surgical History: Hysterectomy, Joint Replacement, Orthopedic Surgery Additional Past Surgical History / Comment(s): [place] knee arthroplasty and rt hip arthroplasty, lt cataract, rt foot sx has plate- screws in place . Past Anesthesia/Blood Transfusion Reactions: No Reported Reaction Past Psychological History: No Psychological Hx Reported Smoking Status: Never smoker Past Alcohol Use History: Occasional Past Drug Use History: None Reported - Past Family History Mother Family Medical History: Cancer Brother(s) Family Medical History: Cancer Father Brother(s) Family Medical History: Cancer Mother Sister(s) Family Medical History: Cancer, Diabetes Mellitus Sister(s) Family Medical History: Cancer General Exam Limitations: no limitations General appearance: alert, in no apparent distress Respiratory exam: Present: normal lung sounds bilaterally. Absent: respiratory distress, wheezes, rales, rhonchi, stridor Cardiovascular Exam: Present: regular rate, normal rhythm, normal heart sounds. Absent: systolic murmur, diastolic murmur, rubs, gallop, clicks Extremities exam: Present: other (Extensive edematous changes lower extremity, diabetic foot wound ulceration noted to the left heel, erythema noted to the knee along with warmth increase the left leg) Skin exam: Present: warm, dry Course Vital Signs 03/21/18 03/21/18 11:49 13:13 Temperature 97.8 F Pulse Rate 76 77 Respiratory 18 18 Rate Blood Pressure 146/63 145/50 O2 Sat by Pulse 99 99 Oximetry Medical Decision Making - Medical Decision Making 72-year-old female presented for infection to her left leg and diabetic foot ulcer. Patient will be admitted for IV antibiotics and consult to infectious disease. - Lab Data Result diagrams: 03/21/18 12:40 03/21/18 13:30 Lab Results 03/21/18 03/21/18 03/21/18 Range/Units 12:40 12:40 13:05 WBC 8.9 (3.8-10.6) k/uL RBC 3.81 (3.80-5.40) m/uL Hgb 10.2 L (11.4-16.0) gm/dL Hct 33.1 L (34.0-46.0) % MCV 86.9 (80.0-100.0) fL MCH 26.9 (25.0-35.0) pg MCHC 30.9 L (31.0-37.0) g/dL RDW 16.9 H (11.5-15.5) % Plt Count 403 (150-450) k/uL Neutrophils % 64 % Lymphocytes % 23 % Monocytes % 6 % Eosinophils % 4 % Basophils % 0 % Neutrophils # 5.8 (1.3-7.7) k/uL Lymphocytes # 2.1 (1.0-4.8) k/uL Monocytes # 0.6 (0-1.0) k/uL Eosinophils # 0.3 (0-0.7) k/uL Basophils # 0.0 (0-0.2) k/uL Hypochromasia Moderate Anisocytosis Slight PT 10.9 (9.0-12.0) sec INR 1.1 (<1.2) APTT 25.2 (22.0-30.0) sec Sodium (137-145) mmol/L Potassium (3.5-5.1) mmol/L Chloride (98-107) mmol/L Carbon Dioxide (22-30) mmol/L Anion Gap mmol/L BUN (7-17) mg/dL Creatinine (0.52-1.04) mg/dL Est GFR (CKD-EPI)AfAm (>60 ml/min/1.73 sqM) Est GFR (CKD-EPI)NonAf (>60 ml/min/1.73 sqM) Glucose (74-99) mg/dL Plasma Lactic Acid Terrence 2.9 H* (0.7-2.0) mmol/L Calcium (8.4-10.2) mg/dL Total Bilirubin (0.2-1.3) mg/dL AST (14-36) U/L ALT (9-52) U/L Alkaline Phosphatase (38-126) U/L Total Protein (6.3-8.2) g/dL Albumin (3.5-5.0) g/dL 03/21/18 Range/Units 13:30 WBC (3.8-10.6) k/uL RBC (3.80-5.40) m/uL Hgb (11.4-16.0) gm/dL Hct (34.0-46.0) % MCV (80.0-100.0) fL MCH (25.0-35.0) pg MCHC (31.0-37.0) g/dL RDW (11.5-15.5) % Plt Count (150-450) k/uL Neutrophils % % Lymphocytes % % Monocytes % % Eosinophils % % Basophils % % Neutrophils # (1.3-7.7) k/uL Lymphocytes # (1.0-4.8) k/uL Monocytes # (0-1.0) k/uL Eosinophils # (0-0.7) k/uL Basophils # (0-0.2) k/uL Hypochromasia Anisocytosis PT (9.0-12.0) sec INR (<1.2) APTT (22.0-30.0) sec Sodium 139 (137-145) mmol/L Potassium 4.8 (3.5-5.1) mmol/L Chloride 101 (98-107) mmol/L Carbon Dioxide 28 (22-30) mmol/L Anion Gap 10 mmol/L BUN 17 (7-17) mg/dL Creatinine 0.89 (0.52-1.04) mg/dL Est GFR (CKD-EPI)AfAm 76 (>60 ml/min/1.73 sqM) Est GFR (CKD-EPI)NonAf 66 (>60 ml/min/1.73 sqM) Glucose 127 H (74-99) mg/dL Plasma Lactic Acid Terrence (0.7-2.0) mmol/L Calcium 9.2 (8.4-10.2) mg/dL Total Bilirubin 0.4 (0.2-1.3) mg/dL AST 40 H (14-36) U/L ALT 20 (9-52) U/L Alkaline Phosphatase 194 H (38-126) U/L Total Protein 7.7 (6.3-8.2) g/dL Albumin 3.1 L (3.5-5.0) g/dL Disposition Clinical Impression: Diabetic ulcer of left foot, Cellulitis of left leg Disposition: ADMITTED IP TO THIS HOSP Condition: Fair Referrals: Kilo Solorzano MD [Primary Care Provider] - 1-2 days
[2018-03-21] MEDS ORDERED: VANCOMYCIN 2,500 MG in SODIUM CHLORIDE 0.9% 500 ML 500 ML IVPB STA (14:02)
--- NOTE | 2018-03-21 14:14 | XR ---
EXAMINATION TYPE: XR foot complete LT DATE OF EXAM: 03/21/2018 COMPARISON: NONE HISTORY: Pain TECHNIQUE: Three views are submitted. FINDINGS: The osseous structures are intact. There is no acute fracture or dislocation. Joint spaces are p reserved. Diffuse soft tissue edema noted. There may be a soft tissue ulceration along the plantar gong rface of the foot. Large calcaneal spur noted with diffuse osteopenia. Arthropathy of all MTP and DIP joints with most marked findings involving the first digit. No erosive changes. No destructive meyer es. IMPRESSION: 1. No acute fracture or dislocation. If symptoms persist, follow-up exam in 7 to 10 days could be ob tained. 2. Severe diffuse soft tissue edema. 3. Arthropathy. If there is concern for osteomyelitis correlate with triple phase bone scan.
[2018-03-21] MEDS ORDERED: NALOXONE 0.4 MG/ML 1 ML VIAL IV PRN (14:19)
[2018-03-21] MEDS ORDERED: MELATONIN 3 MG TABLET PO PRN (16:25)
[2018-03-21] MEDS ORDERED: ETODOLAC 200 MG CAPSULE PO PRN (16:25)
[2018-03-21] MEDS ORDERED: MAGNESIUM HYDROXIDE 2,400 MG/10 ML CUP PO PRN (16:25)
[2018-03-21] MEDS ORDERED: ACETAMINOPHEN TAB 325 MG TAB PO PRN (16:25)
[2018-03-21] MEDS: metFORMIN 500 MG TAB PO SCH (17:22)
[2018-03-21 17:25] LABS: Glucose,Whole Blood 115 mg/dL (75-99)
[2018-03-21] MEDS: MAGNESIUM OXIDE 400 MG TAB PO SCH (20:19)
[2018-03-21] MEDS: CYCLOBENZAPRINE 10 MG TAB PO SCH (20:19)
[2018-03-21] MEDS: PRAVASTATIN SODIUM 20 MG TAB PO SCH (20:19)
[2018-03-21] MEDS ORDERED: PRAVASTATIN SODIUM 40 MG TAB PO SCH (21:00)
[2018-03-21] MEDS: SILVER sulfADIAZINE Cream 400 GM 1 APPLIC APPLIC TOPICAL SCH (22:20)
--- NOTE | 2018-03-21 23:10 | HP ---
HISTORY AND PHYSICAL DATE OF ADMISSION: 03/21/2018 DATE OF SERVICE: 03/21/2018. PRESENTING COMPLAINT: Left leg redness. HISTORY OF PRESENTING COMPLAINT: This is a very pleasant 72-year-old patient who was in the hospital here not too long ago discharged on 02/27/2018. The patient's chronic stable medical conditions include diabetes mellitus type 2, hyperlipidemia, hypertension, osteoarthritis, hypothyroid, chronic bilateral lower extremity lymphedema, morbid obesity, and advanced medical debility. Last admission patient acute severe cellulitis lower extremity with decubitus ulcers, present on the both heels, stage II, causing sepsis on the last admission. The patient had done well with antibiotics and was discharged with Silvadene and vancomycin to be given for 10 days. She had done well, gone to [facility] for rehab. The patient started using the walker and walking good 15- 20 feet with a walker. Now the patient again presented with dryness of the left leg and increasing redness, cellulitis going up to above the calf. This was wrapped up this evening before I got here. The patient denies any fever and chills. Has got some pain and discomfort in the leg. Tolerating a diet. REVIEW OF SYSTEMS: CONSTITUTIONAL: None. HEENT: None. RESPIRATORY: None. GASTROINTESTINAL none. GENITOURINARY: None. MUSCULOSKELETAL: Arthritic pain in many joints. DERMATOLOGICAL as above. HEMATOLOGICAL/LYMPHATICS as above. PSYCHIATRY none. NEUROLOGICAL none. PAST MEDICAL HISTORY: Diabetes, hyperlipidemia, hypertension, osteoarthritis, hypothyroid, bilateral heel wounds, chronic lymphedema, lower extremity cellulitis of left lower extremity. PAST SURGICAL HISTORY: Hysterectomy joint replacement, bilateral knee arthroplasty, right hip arthroplasty, left cataract, right foot surgery and plate and screws in place. SOCIAL HISTORY: . Currently living at [facility]. No smoking. Alcohol occasionally. FAMILY HISTORY: Of cancer type unknown. HOME MEDICATIONS: 1. Silvadene 1% cream topical b.i.d. 2. Pravachol 20 mg q.h.s. 3. Metformin 1000 mg p.o. b.i.d. 4. Pravachol 40 mg q.h.s. 5. Klor-Con 10 mEq p.o. daily. 6. Actos 45 mg p.o. daily. 7. [place]-3 1000 mg p.o. daily. 8. Multivitamin 1 tablet p.o. daily. 9. Melatonin 3 mg p.o. q.h.s. p.r.n. 10.Magnesium oxide 400 mg p.o. b.i.d. 11.Milk of magnesia 25 mg p.o. daily p.r.n. 12.Cozaar 25 mg p.o. daily. 13.Tradjenta 5 mg p.o. daily. 14.Synthroid 88 mcg p.o. daily. 15.Cataflam 50 mg p.o. t.i.d. p.r.n. 16.Flexeril 10 mg p.o. q.h.s. 17.Aspirin 81 mg p.o. daily. 18.Tylenol 325 mg q.6h p.r.n. 19.Silvadene 1% cream topical daily. ALLERGY: ALLERGIES TO BACTRIM. PHYSICAL EXAMINATION: VITAL SIGNS: On examination temperature 97.8. Pulse 76, respiratory 18, blood pressure 146/63, pulse ox 99% on room air. GENERAL APPEARANCE: Well built, BMI 60.5. BMI 61. Lying in bed, awake. EYES: Pupils equal. Conjunctivae normal. HEENT: External appearance of nose and ears normal. Oral cavity normal. NECK: Short, thick, JVD unable to assess. Mass not palpable. RESPIRATORY: Effort normal. LUNGS are clear. CARDIOVASCULAR: 1st and 2nd sounds normal. Some edema. ABDOMEN: Distended, soft. Liver and spleen not palpable. LYMPHATICS: No lymph nodes palpable in the neck and axillae. PSYCHIATRY: Alert and oriented x3. Mood and affect normal. NEUROLOGICAL: Pupils equal. Cranial nerves grossly intact. DERMATOLOGICAL: Left leg currently is wrapped up. Description was noted from the charts. PSYCHIATRY: Alert and oriented x3. Mood and affect normal. INVESTIGATIONS: White count 8.9, hemoglobin 10.2. Potassium 4.8. BUN and creatinine is normal. ASSESSMENT: 1. Acute cellulitis of the left lower extremity probably from port of entry being the dry skin of lower extremity. 2. 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 3. Diabetes mellitus type 2 on oral hypoglycemics. 4. Hyperlipidemia. 5. Essential hypertension. 6. Primary osteoarthritis of multiple joints bilateral. 7. Hypothyroid. 8. Chronic bilateral lower extremity lymphedema. 9. Morbid obesity BMI 60.5. 10.Gait dysfunction uses a walker to get about. PLAN: The patient's home medications resumed. The patient is put back on IV vancomycin, Silvadene and Kerlix and Mika wrap has been done. The patient is also on IV Zosyn. Dr. Camejo was consulted. Care was discussed with the patient. PT/OT will be also consulted. Copy to Dr. Solorzano. MMHODA / LUZN: [id number] /
[2018-03-22] MEDS: PIPERACILLIN-TAZOBACTAM 3.375 GM in SODIUM CHLORIDE 0.9% 100 ML IVPB SCH ×3 (00:02→15:28)
[2018-03-22] MEDS: LEVOTHYROXINE 88 MCG TAB PO SCH (06:18)
[2018-03-22] MEDS: VANCOMYCIN 2,500 MG in SODIUM CHLORIDE 0.9% 500 ML 500 ML IVPB SCH (07:22)
[2018-03-22] MEDS: metFORMIN 500 MG TAB PO SCH ×2 (07:23→17:30)
[2018-03-22] MEDS: ASPIRIN 81 MG PO SCH (07:23)
[2018-03-22] MEDS: LOSARTAN 25 MG TAB PO SCH (07:23)
[2018-03-22] MEDS: POTASSIUM CHLORIDE ER 10 MEQ TAB.ER.PRT PO SCH (07:23)
[2018-03-22] MEDS: PIOGLITAZONE 45 MG TAB PO SCH (07:23)
[2018-03-22] MEDS: MAGNESIUM OXIDE 400 MG TAB PO SCH ×2 (07:23→20:27)
[2018-03-22] MEDS: METOPROLOL SUCCINATE (ER) 50 MG TAB.ER.24H PO SCH (07:23)
[2018-03-22] MEDS: LINAGLIPTIN 5 MG TABLET PO SCH (07:23)
[2018-03-22] MEDS: SILVER sulfADIAZINE Cream 400 GM 1 APPLIC APPLIC TOPICAL SCH ×2 (07:24→20:27)
[2018-03-22 07:36] LABS: Glucose,Whole Blood 156 mg/dL (75-99)
[2018-03-22] MEDS ORDERED: SILVER SULFADIAZINE TOPICAL SCH (09:00)
[2018-03-22] MEDS: MULTIVITAMINS, THERA 1 EACH TAB PO SCH (11:22)
[2018-03-22 11:54] LABS: Glucose,Whole Blood 169 mg/dL (75-99)
--- NOTE | 2018-03-22 16:51 | P.CONS ---
History of Present Illness - Reason for Consult Consult date: 03/22/18 - Chief Complaint Pain and swelling of left leg - History of Present Illness 9-year-old female who was recently admitted to [facility] at which point in time she was having significant infection to the left leg with some ulceration. She routinely follows with Dr. Doran of podiatry. During her last stay she had a fever 101.9 leukocytosis and had significant weakness. She was on evidence of a sepsis event and constantly was treated with antibiotic therapy at the [facility]. I have asked for completing and she was to be discharged home but then had recurrence of the redness tenderness and some swelling to the left lower extremity. Because of this difficulty she was directed to hospital and has been admitted. It essentially relates the leg is feeling considerably better than yesterday. The pain and swelling in 40 started improve in the dense redness is ready started to improve with the antibiotic therapy. She is denying further fever or chills at this point in time. Other new acute complaint at the moment. Review of Systems Constitutional: Reports fatigue, Reports lethargy, Reports malaise, Reports poor appetite, Reports weakness, Denies chills, Denies fever Eyes: denies blurred vision, denies pain Ears, nose, mouth and throat: Denies headache, Denies mouth pain, Denies sore throat, Denies vertigo Cardiovascular: Reports leg edema, Denies chest pain, Denies decreased exercise tolerance, Denies dyspnea on exertion, Denies lightheadedness, Denies shortness of breath, Denies syncope Respiratory: Denies cough, Denies cough with sputum, Denies dyspnea, Denies excessive sputum, Denies hemoptysis, Denies wheezing Gastrointestinal: Denies abdominal pain, Denies diarrhea, Denies nausea, Denies vomiting Genitourinary: Denies dysuria, Denies hematuria, Denies urgency, Denies urinary frequency Musculoskeletal: Denies myalgias Integumentary: Reports color changes, Reports darkening of skin, Reports wounds , is complaining of some generalized pruritus thought to be due to ALLERGY to the sheets and the gown, Denies rash Neurological: Denies numbness, Denies weakness Psychiatric: Denies anxiety, Denies depression Endocrine: Denies fatigue, Denies weight change Past Medical History Past Medical History: Diabetes Mellitus, Eye Disorder, Hyperlipidemia, Hypertension, Osteoarthritis (OA), Thyroid Disorder Additional Past Medical History / Comment(s): Pt recently admitted to [facility] on with acute severe L lower extremity cellulitis, bilateral heel decubs- stage II/sepsis and acute renal failure. Other hx: Diabetic hernandez grade II wounds bilat. heels-seen by Dr. Doran in [facility], chronic lymphedema bilateral lower extremities, NIDDM type II, neuropathy bilateral feet, arthritis multiple joints, R eye cataract, R eye bleed with surgery. History of Any Multi-Drug Resistant Organisms: MRSA Year Discovered:: 08/23/17 MDRO Source:: HEEL Past Surgical History: Hysterectomy, Joint Replacement, Orthopedic Surgery Additional Past Surgical History / Comment(s): Bilateral heel debridements, Picc line now removed, R foot surgery with screws, colonoscopy, R total hip arthroplasty, bilateral total knee arthroplasties, L cataract removal/lens implants, R eye blood clot removal, 2016 aortagram with bilateral runoffs Past Anesthesia/Blood Transfusion Reactions: No Reported Reaction Past Psychological History: No Psychological Hx Reported Additional Psychological History / Comment(s): Pt currently at [facility] and was scheduled to be discharged to home on 03/22/18. , normally lives in the family home with her . 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 Ambulates with walker or uses wheelchair at times. Smoking Status: Never smoker Past Alcohol Use History: Occasional Past Drug Use History: None Reported - Past Family History Mother Family Medical History: Cancer Additional Family Medical History / Comment(s): Mother of lung cancer in her 80s. She was a nonsmoker. Brother(s) Family Medical History: Cancer Father Brother(s) Family Medical History: Cancer Additional Family Medical History / Comment(s): Father had prostrate cancer. He lived into his 80s. Mother Sister(s) Family Medical History: Cancer, Diabetes Mellitus Sister(s) Family Medical History: Cancer, Diabetes Mellitus Medications and Allergies Home Medications and Allergies Comment(s): Current Medications Acetaminophen (Tylenol Tab) 325 mg PO Q6HR PRN PRN Reason: Fever Hydrocodone Bitart/Acetaminophen ([place] 5-325) 1 each PO Q4HR PRN PRN Reason: Moderate Pain Aspirin (Aspirin) 81 mg PO DAILY [facility] Last Admin: 03/22/18 07:23 Dose: 81 mg Cyclobenzaprine HCl (Flexeril) 10 mg PO HS [facility] Last Admin: 03/21/18 20:19 Dose: 10 mg Etodolac (Lodine) 200 mg PO TID PRN PRN Reason: Pain Piperacillin Sod/Tazobactam (Sod 3.375 gm/ Sodium Chloride) 100 mls @ 25 mls/ hr IVPB Q8HR [facility] Last Admin: 03/22/18 15:28 Dose: 25 mls/hr Vancomycin HCl 2,500 mg/ (Sodium Chloride) 500 mls @ 167 mls/hr IVPB DAILY [facility] Last Admin: 03/22/18 07:22 Dose: 167 mls/hr Levothyroxine Sodium (Synthroid) 88 mcg PO 0630 [facility] Last Admin: 03/22/18 06:18 Dose: 88 mcg Linagliptin (Tradjenta) 5 mg PO DAILY [facility] Last Admin: 03/22/18 07:23 Dose: 5 mg Losartan Potassium (Cozaar) 25 mg PO DAILY [facility] Last Admin: 03/22/18 07:23 Dose: 25 mg Magnesium Hydroxide (Milk Of Magnesia) 2,400 mg PO DAILY PRN PRN Reason: Constipation Magnesium Oxide (Mag-Ox) 400 mg PO BID [facility] Last Admin: 03/22/18 07:23 Dose: 400 mg Melatonin (Melatonin) 3 mg PO HS PRN PRN Reason: Insomnia Metformin HCl (Glucophage) 1,000 mg PO BID-W/MEALS [facility] Last Admin: 03/22/18 07:23 Dose: 1,000 mg Metoprolol Succinate (Toprol Xl) 50 mg PO DAILY [facility] Last Admin: 03/22/18 07:23 Dose: 50 mg Multivitamins (Theragran) 1 each PO 1200 [facility] Last Admin: 03/22/18 11:22 Dose: 1 each Naloxone HCl (Narcan) 0.2 mg IV Q2M PRN PRN Reason: Opioid Reversal Pioglitazone HCl (Actos) 45 mg PO DAILY [facility] Last Admin: 03/22/18 07:23 Dose: 45 mg Potassium Chloride (K-Dur 10) 10 meq PO DAILY [facility] Last Admin: 03/22/18 07:23 Dose: 10 meq Pravastatin Sodium (Pravachol) 20 mg PO HS [facility] Last Admin: 03/21/18 20:19 Dose: 20 mg Silver Sulfadiazine (Silvadene Cream) 1 applic TOPICAL BID [facility] Last Admin: 03/22/18 07:24 Dose: 1 applic Home Medications Medication Instructions Recorded Confirmed Type Aspirin 81 mg PO DAILY 02/26/14 03/21/18 History Levothyroxine Sodium [Synthroid] 88 mcg PO DAILY 02/26/14 03/21/18 History Multivitamins, Thera [Multivitamin 1 tab PO DAILY 02/26/14 03/21/18 History (formulary)] Pioglitazone HCl [Actos] 45 mg PO DAILY 02/26/14 03/21/18 History Potassium Chloride [Klor-Con 10] 10 meq PO DAILY 02/26/14 03/21/18 History Pravastatin Sodium [Pravachol] 20 mg PO HS 02/26/14 03/21/18 History Losartan [Cozaar] 25 mg PO DAILY 11/08/14 03/21/18 History metFORMIN HCL 1,000 mg PO BID 11/30/16 03/21/18 History Linagliptin [Tradjenta] 5 mg PO DAILY 12/14/16 03/21/18 History Metoprolol Succinate (ER) [Toprol 50 mg PO DAILY 02/20/18 03/21/18 History XL] [place]-3 Fatty Acids [[place]-3] 1,000 mg PO DAILY 02/20/18 03/21/18 History Cyclobenzaprine HCl 10 mg PO HS 02/22/18 03/21/18 History Diclofenac Potassium [Cataflam] 50 mg PO TID PRN 02/22/18 03/21/18 History Magnesium Hydroxide [Milk of 2,400 mg PO DAILY PRN ml 02/27/18 03/21/18 Rx Magnesia Concentrate] Melatonin 3 mg PO HS PRN tablet 02/27/18 03/21/18 Rx SILVER sulfADIAZINE Cream 1 applic TOPICAL BID applic 02/27/18 03/21/18 Rx [Silvadene 1% Cream] Acetaminophen [Tylenol] 325 mg PO Q6HR PRN 03/07/18 03/21/18 History Magnesium Oxide 400 mg PO BID 03/21/18 03/21/18 History Pravastatin Sodium [Pravachol] 40 mg PO HS 03/21/18 03/21/18 History SILVER sulfADIAZINE Cream 1 applic TOPICAL DAILY 03/21/18 03/21/18 History [Silvadene 1% Cream] Allergies Allergy/AdvReac Type Severity Reaction Status Date / Time sulfamethoxazole Allergy Dyspnea Verified 03/21/18 13:02 [From Bactrim] trimethoprim [From Bactrim] Allergy Dyspnea Verified 03/21/18 13:02 Physical Exam Vitals: Vital Signs Temp Pulse Resp BP Pulse Ox 03/22/18 15:00 97.8 F 66 16 134/67 99 03/22/18 07:00 97.1 F L 80 17 139/68 96 03/21/18 23:00 98.8 F 88 20 104/48 93 L Intake and Output 03/22/18 03/22/18 03/22/18 06:59 14:59 22:59 Intake Total 800 Balance 800 Intake: Oral 800 Other: # Voids 2 1 # Bowel Movements 1 Pleasant 72-year-old woman who his superobesity BMI is 60.5. She relates she is considerably more comfortable today. HEENT: Anicteric conjunctiva are pink and moist nasal mucosa grossly intact without significant lesions, there is no thrush. Neck: The neck is supple without significant lymphadenopathy or thyromegaly. Lungs: Good bilateral air entry without significant crackles or wheezing. There is no significant bronchial sounds. There is no egophony or dullness. Heart: Regular rate and rhythm with an audible S1-S2, no S3 no S4. There is no significant murmur click or rub, PMI was nondisplaced. Abdomen: Obese, Positive bowel sounds soft and nontender without palpable masses or organomegaly. There was no guarding or rebound. Extremities: The upper extremities are intact without significant lesions. Right leg has evidence of chronic changes but no significant new weeping lesions are seen. Chronic ulcerations of the heel. Left Blessing shows evidence of the swelling compared to the right. Is evidence of the erythema that is present on the left leg not present on the right. Patient related surgery improving since coming to hospital. There is evidence of the thickened skin lower extremity there is some scant warmth with some mild erythema is present from the dorsum of the foot to just below the knee. Neuro: Awake alert oriented to person place and time. There are no acute new gross focal sensory motor deficits. Results CBC & Chem 7: 03/21/18 12:40 03/21/18 13:30 Labs: Abnormal Lab Results - Last 24 Hours (Table) 03/21/18 03/22/18 03/22/18 Range/Units 17:12 07:20 11:52 POC Glucose (mg/dL) 115 H 156 H 169 H (75-99) mg/dL Microbiology - Last 24 Hours (Table) 03/21/18 12:40 Blood Culture - Preliminary Blood No Growth after 24 hours Laboratory Results WBC 8.9 k/uL (3.8-10.6) 03/21/18 12:40 RBC 3.81 m/uL (3.80-5.40) 03/21/18 12:40 Hgb 10.2 gm/dL (11.4-16.0) L 03/21/18 12:40 Hct 33.1 % (34.0-46.0) L 03/21/18 12:40 MCV 86.9 fL (80.0-100.0) 03/21/18 12:40 MCH 26.9 pg (25.0-35.0) 03/21/18 12:40 MCHC 30.9 g/dL (31.0-37.0) L 03/21/18 12:40 RDW 16.9 % (11.5-15.5) H 03/21/18 12:40 Plt Count 403 k/uL (150-450) 03/21/18 12:40 Neutrophils % 64 % 03/21/18 12:40 Lymphocytes % 23 % 03/21/18 12:40 Monocytes % 6 % 03/21/18 12:40 Eosinophils % 4 % 03/21/18 12:40 Basophils % 0 % 03/21/18 12:40 Neutrophils # 5.8 k/uL (1.3-7.7) 03/21/18 12:40 Lymphocytes # 2.1 k/uL (1.0-4.8) 03/21/18 12:40 Monocytes # 0.6 k/uL (0-1.0) 03/21/18 12:40 Eosinophils # 0.3 k/uL (0-0.7) 03/21/18 12:40 Basophils # 0.0 k/uL (0-0.2) 03/21/18 12:40 Hypochromasia Moderate 03/21/18 12:40 Anisocytosis Slight 03/21/18 12:40 PT 10.9 sec (9.0-12.0) 03/21/18 13:05 INR 1.1 (<1.2) 03/21/18 13:05 APTT 25.2 sec (22.0-30.0) 03/21/18 13:05 Sodium 139 mmol/L (137-145) 03/21/18 13:30 Potassium 4.8 mmol/L (3.5-5.1) 03/21/18 13:30 Chloride 101 mmol/L (98-107) 03/21/18 13:30 Carbon Dioxide 28 mmol/L (22-30) 03/21/18 13:30 Anion Gap 10 mmol/L 03/21/18 13:30 BUN 17 mg/dL (7-17) 03/21/18 13:30 Creatinine 0.89 mg/dL (0.52-1.04) 03/21/18 13:30 Est GFR (CKD-EPI)AfAm 76 (>60 ml/min/1.73 sqM) 03/21/18 13:30 Est GFR (CKD-EPI)NonAf 66 (>60 ml/min/1.73 sqM) 03/21/18 13:30 Glucose 127 mg/dL (74-99) H 03/21/18 13:30 POC Glucose (mg/dL) 169 mg/dL (75-99) H 03/22/18 11:52 POC Glu Candy Packer ID Smita Lopez 03/22/18 11:52 Lactic Ac Sepsis Rflx Y 03/21/18 13:44 Plasma Lactic Acid Terrence 1.4 mmol/L (0.7-2.0) 03/21/18 17:03 Calcium 9.2 mg/dL (8.4-10.2) 03/21/18 13:30 Total Bilirubin 0.4 mg/dL (0.2-1.3) 03/21/18 13:30 AST 40 U/L (14-36) H 03/21/18 13:30 ALT 20 U/L (9-52) 03/21/18 13:30 Alkaline Phosphatase 194 U/L (38-126) H 03/21/18 13:30 Total Protein 7.7 g/dL (6.3-8.2) 11/02/18 13:30 Albumin 3.1 g/dL (3.5-5.0) L 03/21/18 13:30 Microbiology 03/21/18 12:40 Blood Blood Culture - Preliminary No Growth after 24 hours Assessment and Plan (1) Cellulitis of left leg Narrative/Plan: 72-year-old woman presents to Hospital from A care facility prior to her discharge to home where she had the sudden onset of worsening swelling pain and erythema to the left lower extremity. If this time it is noted that she is really starting to show significant improvement we will continue current antibiotic therapy with Zosyn and vancomycin until we have further data. Blood cultures negative so far. She is not having high- grade fevers at this time. We'll continue ongoing local wound care with the therahoney to the heels and Silvadene to the leg with the wrap and elevation. Would continue to monitor her improvement in the discharge plan is certainly the biggest question at this time as to what shall happen at discharge whether she'll go back to extended care oral be well enough to attend the home. Current Visit: Yes Status: Acute Code(s): L03.116 - CELLULITIS OF LEFT LOWER LIMB SNOMED Code(s): 299599491 (2) Obesity Current Visit: No Status: Acute Code(s): E66.9 - OBESITY, UNSPECIFIED SNOMED Code(s): 039100563 (3) Lactic acidosis Current Visit: Yes Status: Acute Code(s): E87.2 - ACIDOSIS SNOMED Code(s) : 85669695
--- NOTE | 2018-03-22 17:05 | PN ---
PROGRESS NOTE DATE OF SERVICE: 03/22/18. PRESENTING COMPLAINT: Left leg redness. INTERVAL HISTORY: Patient has multiple medical problems presents with acute left lower extremity cellulitis, pain, discomfort at present. Tolerating a diet. Sitting up on a chair. No fever. No chills. REVIEW OF SYSTEMS: Done for constitutional, cardiovascular, GI, pulmonary, dermatologic; relevant findings as above. CURRENT MEDICATIONS: Reviewed that include IV vancomycin and Zosyn. EXAMINATION: Temp 97.8, pulse 62, respiration 16, blood pressure 134/57, pulse ox 99% on room air. GENERAL APPEARANCE: Sitting up in a chair, awake, comfortable. EYES: Pupils equal. Conjunctivae normal. HEENT: External appearance of nose and ears normal. Oral cavity normal. NECK: Short, thick. JVD unable to assess. Mass not palpable. RESPIRATORY: Effort normal. Lungs are clear. CARDIOVASCULAR: 1st and 2nd sounds are normal. Some edema. ABDOMEN: Distended, soft. Liver and spleen are not palpable. PSYCHIATRY: Alert and oriented x3. Mood and affect normal. DERMATOLOGICAL: Cellulitis of left lower extremity. INVESTIGATIONS: Accu-Cheks noted. ASSESSMENT: 1. Acute cellulitis in the left lower extremity, entry point being dry skin on the same extremity. 2. Chronic bilateral decubitus ulcer on the heel, stage II. 3. Diabetes mellitus type 2 on oral hypoglycemic. 4. Hyperlipidemia. 5. Essential hypertension. 6. Primary osteoarthritis of multiple joints bilateral. 7. Hypothyroid. 8. Chronic bilateral lower extremity lymphedema. 9. Morbid obesity, BMI 53.5. 10.Gait dysfunction, uses a walker to get about. PLAN: Continue current medication and treatment plan. Await input from Dr. Camejo. Care was discussed with the patient. MMODL / IJN: [id number] /
[2018-03-22 17:11] LABS: Glucose,Whole Blood 161 mg/dL (75-99)
[2018-03-22] MEDS: CYCLOBENZAPRINE 10 MG TAB PO SCH (20:27)
[2018-03-22] MEDS: PRAVASTATIN SODIUM 20 MG TAB PO SCH (20:27)
[2018-03-22 20:28] LABS: Glucose,Whole Blood 168 mg/dL (75-99)
[2018-03-23] MEDS: LEVOTHYROXINE 88 MCG TAB PO SCH (05:59)
[2018-03-23] MEDS: POTASSIUM CHLORIDE ER 10 MEQ TAB.ER.PRT PO SCH (07:20)
[2018-03-23] MEDS: METOPROLOL SUCCINATE (ER) 50 MG TAB.ER.24H PO SCH (07:20)
[2018-03-23] MEDS: VANCOMYCIN 2,500 MG in SODIUM CHLORIDE 0.9% 500 ML 500 ML IVPB SCH (07:20)
[2018-03-23] MEDS: ASPIRIN 81 MG PO SCH (07:20)
[2018-03-23] MEDS: PIPERACILLIN-TAZOBACTAM 3.375 GM in SODIUM CHLORIDE 0.9% 100 ML IVPB SCH ×5 (07:20→23:34)
[2018-03-23] MEDS: LOSARTAN 25 MG TAB PO SCH (07:20)
[2018-03-23] MEDS: PIOGLITAZONE 45 MG TAB PO SCH (07:20)
[2018-03-23] MEDS: metFORMIN 500 MG TAB PO SCH ×2 (07:21→16:59)
[2018-03-23] MEDS: MAGNESIUM OXIDE 400 MG TAB PO SCH ×2 (07:21→20:01)
[2018-03-23] MEDS: LINAGLIPTIN 5 MG TABLET PO SCH (07:21)
[2018-03-23 07:51] LABS: Glucose,Whole Blood 148 mg/dL (75-99)
[2018-03-23] MEDS: SILVER sulfADIAZINE Cream 400 GM 1 APPLIC APPLIC TOPICAL SCH ×2 (08:07→20:02)
[2018-03-23] MEDS: MULTIVITAMINS, THERA 1 EACH TAB PO SCH (11:27)
[2018-03-23 12:04] LABS: Glucose,Whole Blood 167 mg/dL (75-99)
[2018-03-23 17:27] LABS: Glucose,Whole Blood 176 mg/dL (75-99)
--- NOTE | 2018-03-23 19:06 | PN ---
PROGRESS NOTE DATE OF SERVICE: 03/23/18. PRESENT COMPLAINT: Left leg redness. INTERVAL HISTORY: The patient has multiple medical problems presents acute left lower extremity cellulitis. Some improvement of redness and discomfort, is on IV antibiotics. Topical care was continued. Bowels stable, tolerating a diet. No fever. No chills. REVIEW OF SYSTEMS: Done for constitutional, cardiovascular, GI, pulmonary; relevant findings as above. CURRENT MEDICATIONS: Reviewed that include IV vancomycin and IV Zosyn. PHYSICAL EXAMINATION: Temperature 96.8, pulse 54, respirations 16, blood pressure 134/52, pulse 100 percent on room air. GENERAL APPEARANCE: Sitting in a chair comfortable. EYES: Pupils equal. Conjunctivae normal. HEENT: External nose and ears normal. Oral cavity normal. NECK: JVD not raised. Mass not palpable. RESPIRATORY: Effort normal. Lungs clear. CARDIOVASCULAR: 1st and 2nd sounds. No edema present. ABDOMEN: Distended, soft. Liver and spleen not palpable. PSYCHIATRY: Alert and oriented x3. Mood and affect normal. DERMATOLOGICAL: Cellulitis of the left lower extremity, which is actually improving. INVESTIGATIONS: Accu-Cheks are noted. ASSESSMENT: 1. Acute cellulitis of the left lower extremity, entry point being dry skin on the same extremity. 2. Chronic bilateral decubitus ulcer on the heel, stage II. 3. Diabetes mellitus type 2 on oral hypoglycemic. 4. Hyperlipidemia. 5. Essential hypertension. 6. Primary osteoarthritis of multiple joints bilateral. 7. Hypothyroid. 8. Chronic bilateral lower extremity lymphedema. 9. Morbid obesity, BMI 53.5. 10.Gait dysfunction, uses a walker to get about. PLAN: Continue current medication and treatment plan. Care was discussed with the patient. MMODL / IJN: [id number] /
[2018-03-23] MEDS: CYCLOBENZAPRINE 10 MG TAB PO SCH (20:01)
[2018-03-23] MEDS: PRAVASTATIN SODIUM 20 MG TAB PO SCH (20:01)
[2018-03-23 21:09] LABS: Glucose,Whole Blood 148 mg/dL (75-99)
[2018-03-24] MEDS: HYDROcodone/APAP 5-325MG 1 EACH TAB PO PRN (02:11)
[2018-03-24] MEDS: LEVOTHYROXINE 88 MCG TAB PO SCH (06:02)
[2018-03-24 07:24] LABS: Glucose,Whole Blood 149 mg/dL (75-99)
[2018-03-24] MEDS: PIPERACILLIN-TAZOBACTAM 3.375 GM in SODIUM CHLORIDE 0.9% 100 ML IVPB SCH ×3 (07:33→23:10)
[2018-03-24] MEDS: metFORMIN 500 MG TAB PO SCH ×2 (07:35→15:29)
[2018-03-24] MEDS: PIOGLITAZONE 45 MG TAB PO SCH (07:35)
[2018-03-24] MEDS: MAGNESIUM OXIDE 400 MG TAB PO SCH ×2 (07:36→20:03)
[2018-03-24] MEDS: ASPIRIN 81 MG PO SCH (07:36)
[2018-03-24] MEDS: LOSARTAN 25 MG TAB PO SCH (07:36)
[2018-03-24] MEDS: METOPROLOL SUCCINATE (ER) 50 MG TAB.ER.24H PO SCH (07:36)
[2018-03-24] MEDS: LINAGLIPTIN 5 MG TABLET PO SCH (07:36)
[2018-03-24] MEDS: MULTIVITAMINS, THERA 1 EACH TAB PO SCH (07:36)
[2018-03-24] MEDS: VANCOMYCIN 2,500 MG in SODIUM CHLORIDE 0.9% 500 ML 500 ML IVPB SCH (07:37)
[2018-03-24] MEDS: SILVER sulfADIAZINE Cream 400 GM 1 APPLIC APPLIC TOPICAL SCH ×2 (07:37→20:03)
[2018-03-24] MEDS: POTASSIUM CHLORIDE ER 10 MEQ TAB.ER.PRT PO SCH (08:28)
[2018-03-24 10:17] LABS: Calcium 8.9 mg/dL (8.4-10.2); Potassium 4.9 mmol/L (3.5-5.1)
[2018-03-24 12:08] LABS: Glucose,Whole Blood 146 mg/dL (75-99)
[2018-03-24 12:43] VITALS: BMI 60.5
[2018-03-24 17:21] LABS: Glucose,Whole Blood 144 mg/dL (75-99)
[2018-03-24] MEDS: PRAVASTATIN SODIUM 20 MG TAB PO SCH (20:03)
[2018-03-24] MEDS: CYCLOBENZAPRINE 10 MG TAB PO SCH (20:03)
--- NOTE | 2018-03-24 20:22 | PN ---
PROGRESS NOTE DATE OF SERVICE: 03/24/2018. PRESENTING COMPLAINT: Left leg redness. INTERVAL HISTORY: This patient with multiple medical problems, presented with acute left lower extremity cellulitis. This is a recurrence. The redness and discomfort continues to improve. The patient's activity has been much better. Saw this patient earlier today. She now wants to go home. Overall feeling much better. bindery worker is involved. REVIEW OF SYSTEMS: Done for constitutional, cardiovascular, GI, pulmonary; relevant findings as above. CURRENT MEDICATIONS: Reviewed that include IV vancomycin, on topical Silvadene. PHYSICAL EXAMINATION: VITAL SIGNS: On examination, afebrile, pulse 84, respiratory 18, blood pressure 121/82, pulse ox 92 percent on room air. GENERAL APPEARANCE: Sitting in a chair, comfortable. EYES: Pupils are equal. Conjunctivae normal. HEENT: External appearance of nose and ears normal. Oral cavity normal. NECK: JVD not raised. Mass not palpable. RESPIRATORY: Effort, lungs are clear. CARDIOVASCULAR: 1st and 2nd sounds normal. Mild edema present. ABDOMEN: Soft, nontender. Liver and spleen not palpable. PSYCHIATRY: Alert and oriented x3. Mood and affect normal. INVESTIGATIONS: BUN 40, creatinine 1.05. Accu-Cheks are noted. ASSESSMENT: 1. Acute cellulitis recurrent of the left lower extremity in particular being dry skin on this extremity. 2. Chronic bilateral decubitus ulcer on the heels, stage II, present on admission. 3. Diabetes mellitus type 2 on oral hypoglycemic. 4. Hyperlipidemia. 5. Essential hypertension. 6. Primary osteoarthritis multiple joints bilateral. 7. Hypothyroid. 8. Chronic bilateral lower extremity lymphedema. 9. Morbid obesity BMI 33.5. 10.Chronic gait dysfunction uses a walker to get about. PLAN: The patient wishes to go home. bindery worker is involved. Discussed with Dr. Camejo. The patient can be hopefully be switched over to oral antibiotics and be discharged tomorrow. MMODL / IJN: [id number] /
[2018-03-24 20:51] LABS: Glucose,Whole Blood 176 mg/dL (75-99)
--- NOTE | 2018-03-24 22:12 | P.PN ---
Subjective Progress Note Date: 03/24/18 72-year-old female who was recently admitted to [facility] at which point in time she was having significant infection to the left leg with some ulceration. She routinely follows with Dr. Doran of podiatry. During her last stay she had a fever 101.9 leukocytosis and had significant weakness. She was on evidence of a sepsis event and constantly was treated with antibiotic therapy at the extended care facility. I have asked for completing and she was to be discharged home but then had recurrence of the redness tenderness and some swelling to the left lower extremity. Because of this difficulty she was directed to hospital and has been admitted. It essentially relates the leg is feeling considerably better than yesterday. The pain and swelling in 40 started improve in the dense redness is ready started to improve with the antibiotic therapy. She is denying further fever or chills at this point in time. Other new acute complaint at the moment. 03/24/2018 patient is feeling somewhat better today. The erythema to the left leg is now much improved. And she is being readied for discharge home in the near future. She overall is feeling somewhat better and arrangements for home care also in process. Objective - Vital Signs Vital signs: Vital Signs Temp 98.2 F 03/24/18 15:00 Pulse 72 03/24/18 15:00 Resp 17 03/24/18 15:00 BP 123/55 03/24/18 15:00 Pulse Ox 97 03/24/18 15:00 Intake & Output 03/24/18 03/24/18 03/25/18 06:59 18:59 06:59 Intake Total 500 Balance 500 Weight 170.097 kg 170.097 kg Intake: Oral 500 Other: # Voids 1 1 # Bowel Movements 1 - Exam Pleasant 72-year-old woman who his superobesity BMI is 60.5. She relates she is considerably more comfortable today. HEENT: Anicteric conjunctiva are pink and moist nasal mucosa grossly intact without significant lesions, there is no thrush. Neck: The neck is supple without significant lymphadenopathy or thyromegaly. Lungs: Good bilateral air entry without significant crackles or wheezing. There is no significant bronchial sounds. There is no egophony or dullness. Heart: Regular rate and rhythm with an audible S1-S2, no S3 no S4. There is no significant murmur click or rub, PMI was nondisplaced. Abdomen: Obese, Positive bowel sounds soft and nontender without palpable masses or organomegaly. There was no guarding or rebound. Extremities: The upper extremities are intact without significant lesions. Right leg has evidence of chronic changes but no significant new weeping lesions are seen. Chronic ulcerations of the heel. Left leg shows evidence of improvement of the edema however limb is still larger than the right lower extremity. Is evidence of the further improvement of the erythema of the left leg not present on the right. Patient relates to improving discomfort since coming to hospital. There is evidence of the thickened skin lower extremity there is some scant warmth with some mild erythema is present from the dorsum of the foot to just below the knee. Neuro: Awake alert oriented to person place and time. There are no acute new gross focal sensory motor deficits. - Labs CBC & Chem 7: 03/21/18 12:40 03/24/18 09:19 Labs: Abnormal Lab Results - Last 24 Hours (Table) 03/24/18 03/24/18 03/24/18 Range/Units 07:09 09:19 12:07 Creatinine 1.05 H (0.52-1.04) mg/dL Glucose 201 H (74-99) mg/dL POC Glucose (mg/dL) 149 H 146 H (75-99) mg/dL 03/24/18 03/24/18 Range/Units 16:57 20:50 Creatinine (0.52-1.04) mg/dL Glucose (74-99) mg/dL POC Glucose (mg/dL) 144 H 176 H (75-99) mg/dL Microbiology - Last 24 Hours (Table) 03/21/18 12:40 Blood Culture - Preliminary Blood No Growth after 72 hours Laboratory Results WBC 8.9 k/uL (3.8-10.6) 03/21/18 12:40 RBC 3.81 m/uL (3.80-5.40) 03/21/18 12:40 Hgb 10.2 gm/dL (11.4-16.0) L 03/21/18 12:40 Hct 33.1 % (34.0-46.0) L 03/21/18 12:40 MCV 86.9 fL (80.0-100.0) 03/21/18 12:40 MCH 26.9 pg (25.0-35.0) 03/21/18 12:40 MCHC 30.9 g/dL (31.0-37.0) L 03/21/18 12:40 RDW 16.9 % (11.5-15.5) H 03/21/18 12:40 Plt Count 403 k/uL (150-450) 03/21/18 12:40 Neutrophils % 64 % 03/21/18 12:40 Lymphocytes % 23 % 03/21/18 12:40 Monocytes % 6 % 03/21/18 12:40 Eosinophils % 4 % 03/21/18 12:40 Basophils % 0 % 03/21/18 12:40 Neutrophils # 5.8 k/uL (1.3-7.7) 03/21/18 12:40 Lymphocytes # 2.1 k/uL (1.0-4.8) 03/21/18 12:40 Monocytes # 0.6 k/uL (0-1.0) 03/21/18 12:40 Eosinophils # 0.3 k/uL (0-0.7) 03/21/18 12:40 Basophils # 0.0 k/uL (0-0.2) 03/21/18 12:40 Hypochromasia Moderate 03/21/18 12:40 Anisocytosis Slight 03/21/18 12:40 PT 10.9 sec (9.0-12.0) 03/21/18 13:05 INR 1.1 (<1.2) 03/21/18 13:05 APTT 25.2 sec (22.0-30.0) 03/21/18 13:05 Sodium 139 mmol/L (137-145) 03/24/18 09:19 Potassium 4.9 mmol/L (3.5-5.1) 03/24/18 09:19 Chloride 102 mmol/L (98-107) 03/24/18 09:19 Carbon Dioxide 28 mmol/L (22-30) 03/24/18 09:19 Anion Gap 9 mmol/L 03/24/18 09:19 BUN 14 mg/dL (7-17) 03/24/18 09:19 Creatinine 1.05 mg/dL (0.52-1.04) H 03/24/18 09:19 Est GFR (CKD-EPI)AfAm 62 (>60 ml/min/1.73 sqM) 03/24/18 09:19 Est GFR (CKD-EPI)NonAf 54 (>60 ml/min/1.73 sqM) 03/24/18 09:19 Glucose 201 mg/dL (74-99) H 03/24/18 09:19 POC Glucose (mg/dL) 176 mg/dL (75-99) H 03/24/18 20:50 POC Glu Director Of Restaurants ID Lupe White 03/24/18 20:50 Lactic Ac Sepsis Rflx Y 03/21/18 13:44 Plasma Lactic Acid Terrence 1.4 mmol/L (0.7-2.0) 03/21/18 17:03 Calcium 8.9 mg/dL (8.4-10.2) 03/24/18 09:19 Total Bilirubin 0.4 mg/dL (0.2-1.3) 03/21/18 13:30 AST 40 U/L (14-36) H 03/21/18 13:30 ALT 20 U/L (9-52) 03/21/18 13:30 Alkaline Phosphatase 194 U/L (38-126) H 03/21/18 13:30 Total Protein 7.7 g/dL (6.3-8.2) 03/21/18 13:30 Albumin 3.1 g/dL (3.5-5.0) L 03/21/18 13:30 Microbiology 03/21/18 12:40 Blood Blood Culture - Preliminary No Growth after 72 hours Assessment and Plan (1) Cellulitis of left leg Narrative/Plan: 72-year-old woman presents to Hospital from A care facility prior to her discharge to home where she had the sudden onset of worsening swelling pain and erythema to the left lower extremity. If this time it is noted that she is really starting to show significant improvement we will continue current antibiotic therapy with Zosyn and vancomycin until we have further data. Blood cultures negative so far. She is not having high- grade fevers at this time. We'll continue ongoing local wound care with the therahoney to the heels and Silvadene to the leg with the wrap and elevation. Would continue to monitor her improvement in the discharge plan is certainly the biggest question at this time as to what shall happen at discharge whether she'll go back to extended care oral be well enough to attend the home. 03/24/2018 patient has had further improvement with topical therapy and current antibiotic therapy. No positive cultures at this time. She likely will be discharged home tomorrow under the care of the [facility] where she will receive ongoing Silvadene wraps, therahoney to the heels, and attempts for improved elevation of her lower extremities. She relates that she has a new bed at home and hopefully she'll find this more comfortable we'll spend more time in a position with her legs at least level with her heart which may help with some of the chronic edema issue. Antimicrobial therapy for home will include a combination of cefuroxime and doxycycline. She will follow-up wound healing center with her routine physician. Current Visit: Yes Status: Acute Code(s): L03.116 - CELLULITIS OF LEFT LOWER LIMB SNOMED Code(s): 823941709 (2) Obesity Current Visit: No Status: Acute Code(s): E66.9 - OBESITY, UNSPECIFIED SNOMED Code(s): 183293563 (3) Lactic acidosis Current Visit: Yes Status: Acute Code(s): E87.2 - ACIDOSIS SNOMED Code(s) : 99843057
[2018-03-25] MEDS: HYDROcodone/APAP 5-325MG 1 EACH TAB PO PRN (01:56)
[2018-03-25] MEDS: LEVOTHYROXINE 88 MCG TAB PO SCH (06:20)
[2018-03-25 07:29] LABS: Glucose,Whole Blood 132 mg/dL (75-99)
[2018-03-25 07:42] VITALS: BP 114/46; PULSE 82; TEMP 96.7
[2018-03-25] MEDS ORDERED: VANCOMYCIN TROUGH DUE 1 EACH MISC MISCELLANE ONE (08:00)
[2018-03-25] MEDS: LINAGLIPTIN 5 MG TABLET PO SCH (09:15)
[2018-03-25] MEDS: PIOGLITAZONE 45 MG TAB PO SCH (09:15)
[2018-03-25] MEDS: MULTIVITAMINS, THERA 1 EACH TAB PO SCH (09:15)
[2018-03-25] MEDS: LOSARTAN 25 MG TAB PO SCH (09:15)
[2018-03-25] MEDS: ASPIRIN 81 MG PO SCH (09:15)
[2018-03-25] MEDS: metFORMIN 500 MG TAB PO SCH (09:15)
[2018-03-25] MEDS: METOPROLOL SUCCINATE (ER) 50 MG TAB.ER.24H PO SCH (09:15)
[2018-03-25] MEDS: PIPERACILLIN-TAZOBACTAM 3.375 GM in SODIUM CHLORIDE 0.9% 100 ML IVPB SCH (09:16)
[2018-03-25] MEDS: SILVER sulfADIAZINE Cream 400 GM 1 APPLIC APPLIC TOPICAL SCH (09:16)
[2018-03-25] MEDS: MAGNESIUM OXIDE 400 MG TAB PO SCH (09:16)
[2018-03-25] MEDS: POTASSIUM CHLORIDE ER 10 MEQ TAB.ER.PRT PO SCH (09:16)
[2018-03-25] MEDS: VANCOMYCIN 2,500 MG in SODIUM CHLORIDE 0.9% 500 ML 500 ML IVPB SCH (09:21)
[2018-03-25 09:41] LABS: Potassium 4.8 mmol/L (3.5-5.1)
[2018-03-25 10:49] VITALS: RESP 17
[2018-03-25 11:57] LABS: Glucose,Whole Blood 165 mg/dL (75-99)
--- NOTE | 2018-03-25 14:45 | CDI ---
Last Revision, April 2017 Documentation Clarification Form Date: 03/25/2018 2:12:11 PM From: Ree Pardo RN, CCDS Admit Date: 03/21/2018 2:19:00 PM Patient Name: Elena Thacker Visit Number: [id number] Discharge Date: ATTENTION: The Clinical Documentation Specialists (CDI) and [facility] Coding Staff appreciate your assistance in clarifying documentation. Please respond to the clarification below the line at the bottom and electronically sign. The CDI & [facility] Coding staff will review the response and follow-up if needed. Please note: Queries are made part of the Legal Health Record. If you have any questions, please contact the author of this message via ITS. Arthur Muller MD Your patient has the documented diagnosis of acute cellulitis of the left lower extremity with chronic bilateral decubitus ulcers on the heels stage II and has diabetes mellitus type 2 on oral hypoglycemic per your progress notes. A relationship between diagnoses cannot be assumed unless documented as such by the attending physician. In order to capture the severity of condition; please document the relationship, if any, between these diagnoses. History/Risk Factors: Diabetes mellitus type 2, Hypertension, Chronic ulcer left foot, chronic bilateral lower extremity lymphedema Clinical Indicators: the patient presented with dryness of the left leg and increasing redness, cellulitis going up to above the calf. The patient denies any fever and chills. Left foot XR: Severe diffuse soft tissue edema. Treatment: Silvadene Cream topical BID Vancomycin IV, Zosyn IV Monitor labs Please clarify and document your clinical opinion in the progress notes and discharge summary if any relationship (due to, caused by, secondary to) exists between these two diagnoses. Please include clinical findings supporting your diagnosis. Acute cellulitis in a patient with Diabetes mellitus type 2 Acute cellulitis in a patient with history of diabetic ulcer of left foot stage II Other explanation of clinical findings (please specify) Unable to determine (no explanation for clinical findings) Please continue to document in your progress notes and discharge summary in order to capture severity of illness and risk of mortality. Include clinical findings that support your diagnosis. acute cellulitis of lef leg with left heel diabetic ulcer satge 2 MTDD
[2018-03-25 19:26] LABS: Hemoglobin A1C 7.4 % (4.0-6.0)
--- NOTE | 2018-03-26 06:03 | DS ---
DISCHARGE SUMMARY DATE OF ADMISSION: 03/21/2018 DATE OF DISCHARGE: 03/25/2018 FINAL DIAGNOSES: 1. Acute left lower extremity cellulitis, recurrent secondary to associated left heel decubitus ulcer, stage II, diabetic. 2. Chronic bilateral decubitus ulcer on the heels, stage II, present on admission. 3. Diabetes mellitus type 2 on oral hypoglycemic. 4. Hyperlipidemia. 5. Essential hypertension. 6. Primary osteoarthritis multiple joints bilateral. 7. Hypothyroid. 8. Chronic bilateral lower extremity lymphedema. 9. Morbid obesity, body mass index 33.5. 10.Chronic gait dysfunction, uses a walker to get about. HOSPITAL COURSE: This patient was recently in the hospital with left lower extremity cellulitis presented yet again with flare-up of the same. The patient has got bilateral heel ulcers. The patient was treated with IV vancomycin, Zosyn and topical Silvadene to which she greatly responded. Doing much better. Patient using a walker, ambulatory, keen to go home. CONSULTATION: Dr. Camejo, Infectious Disease. PHYSICAL EXAMINATION: On examination, temperature 96.7, pulse 82, respiration 16, blood pressure 114/46, pulse ox 96% on room air. LUNGS: Fair entry. Decreased improved redness on the left lower extremity. LABS: Potassium 4.8. BUN 13, creatinine 1.08. DISCHARGE MEDICATIONS: 1. Aspirin 81 mg a day. 2. Synthroid 88 mcg a day. 3. Multivitamin 1 tablet p.o. daily. 4. Actos 45 mg p.o. daily. 5. Potassium 10 mEq p.o. daily. 6. Pravachol 20 mg p.o. q.h.s. 7. Cozaar 25 mg p.o. daily. 8. Metformin 1000 mg p.o. b.i.d. 9. Tradjenta 5 mg p.o. daily. 10.Toprol XL 50 mg p.o. daily. 11.Concrete-3, 1000 mg p.o. daily. 12.Cyclobenzaprine 10 mg p.o. q.h.s. 13.Cataflam 50 mg p.o. t.i.d. p.r.n. 14.Milk of magnesia 2400 mg p.o. daily p.r.n. 15.Melatonin 3 mg q.h.s. p.r.n. 16.Silvadene 1% topical b.i.d. 17.Magnesium oxide 400 mg p.o. b.i.d. 18.Pravachol 40 mg q.h.s. 19.Silvadene 1% topical daily. 20.Ceftin 500 mg p.o. b.i.d., 20 tablets. 21.Doxycycline 100 mg p.o. b.i.d., 20 capsules. Dressing to lower extremity to continue, TheraHoney on bilateral heels, covered with gauze, wrapped with Kerlix. Follow up with Dr. Solorzano on 03/31/2018. [facility] to follow. Follow up with Dr. Camejo as needed. MMODL / IJN: [id number] /
[2018-03-26] MEDS ORDERED: VANCOMYCIN 2,000 MG in SODIUM CHLORIDE 0.9% 500 ML 500 ML IVPB SCH (12:00)
== END 2018-03-25 15:35 | disposition still patient (30) | DRG 638 ==
LOC: EC 11:08 → 4MS4W 14:19
PROVIDERS: ADMIT Hospitalist; ATTEND Hospitalist
DX: E11.628 Type 2 diabetes mellitus with other skin complications (principal); L03.116 Cellulitis of left lower limb; Z68.44 Body mass index [BMI] 60.0-69.9, adult; E87.2 Acidosis; I89.0 Lymphedema, not elsewhere classified; I10 Essential (primary) hypertension; M15.9 Polyosteoarthritis, unspecified; E78.5 Hyperlipidemia, unspecified; E03.9 Hypothyroidism, unspecified; E66.01 Morbid (severe) obesity due to excess calories; L89.622 Pressure ulcer of left heel, stage 2; L89.612 Pressure ulcer of right heel, stage 2; E11.40 Type 2 diabetes mellitus with diabetic neuropathy, unspecified; Z79.82 Long term (current) use of aspirin; R26.9 Unspecified abnormalities of gait and mobility; Z88.2 Allergy status to sulfonamides; Z79.84 Long term (current) use of oral hypoglycemic drugs; Z79.890 Hormone replacement therapy; Z79.899 Other long term (current) drug therapy; Z86.14 Personal history of Methicillin resistant Staphylococcus aureus infection; Z90.710 Acquired absence of both cervix and uterus; Z98.42 Cataract extraction status, left eye; Z96.653 Presence of artificial knee joint, bilateral; Z96.1 Presence of intraocular lens; Z96.641 Presence of right artificial hip joint; Z80.1 Family history of malignant neoplasm of trachea, bronchus and lung; Z80.42 Family history of malignant neoplasm of prostate; Z83.3 Family history of diabetes mellitus
CPT/HCPCS: 36415; 80048; 80053; 80202; 83036; 83605; 85025; 85610; 85730; 87040; 96365; 99284

== ENCOUNTER 2018-04-28 20:13 | Emergency (ER) | payer MEDICARE, OTHER ==
[~2018-04-28 20:13] MED LIST changes: -ALPRAZolam 0.25 MG TAB PO PRN; -ASPIRIN 325 MG TAB PO STA; +ATROPINE SULFATE 0.1 MG/ML 10ML SYRINGE ONE; +EPINEPHrine 10 ML SYRINGE (0.1 MG/ML) ONE; -HEPARIN SODIUM 1,000 UNIT/ML VIAL IV ONE; -IODIXANOL 320 MG/ML 100 ML INTRAARTER ONE; -LIDOCAINE 2% INJ 20 MG/ML SQ ONE; +SODIUM BICARB 8.4% 50 ML SYR (1 MEQ/ML) ONE; -SODIUM CHLORIDE 0.9% 1,000 ML IV ONE; -SODIUM CHLORIDE 0.9% 1,000 ML IV SCH; -SODIUM CHLORIDE 0.9% 1,000 ML in EMPTY BAG 1 BAG IV ONE
[2018-04-28 20:18] VITALS: RESP 0
[2018-04-28 20:37] LABS: Glucose,Whole Blood 401 mg/dL (75-99)
[2018-04-28 20:46] LABS: Albumin 3.4 g/dL (3.5-5.0); Calcium 9.3 mg/dL (8.4-10.2); Total Bilirubin 0.6 mg/dL (0.2-1.3); Total Protein 8.1 g/dL (6.3-8.2)
[2018-04-28 20:47] LABS: INR 1.1 (<1.2); Partial Thromboplastin Time 26.7 sec (22.0-30.0); Prothrombin Time 11.7 sec (9.0-12.0)
[2018-04-28 20:54] LABS: Anisocytosis Slight; HGB 8.8 gm/dL (11.4-16.0); Hypochromasia Marked; MCH 26.1 pg (25.0-35.0); MCHC 28.5 g/dL (31.0-37.0); MCV 91.7 fL (80.0-100.0); Mean Platelet Volume 7.4; Platelet Count 367 k/uL (150-450); RBC 3.38 m/uL (3.80-5.40); RDW 16.4 % (11.5-15.5); WBC 26.3 k/uL (3.8-10.6)
--- NOTE | 2018-04-28 20:55 | ED ---
General Adult HPI - General Chief complaint: Cardiac Arrest/CPR Stated complaint: Cardiac Arrest Time Seen by Provider: 04/28/18 20:15 Source: EMS, RN notes reviewed Mode of arrival: EMS Limitations: altered mental status, physical limitation - History of Present Illness Initial comments: Patient is an unresponsive 73-year-old female arriving by EMS, priority 1. Patient lost pulse 15-20 minutes prior to arrival. EMS has been providing CPR and did provide 2-3 epi. Patient originally called for nausea and vomiting. Patient then became short of breath and then lost her pulse. Patient is unresponsive and unable to provide any further history at this point. Patient reportedly has been treated for cellulitis of her legs recently. - Related Data Home Medications Medication Instructions Recorded Confirmed Aspirin 81 mg PO DAILY 02/26/14 04/18/18 Levothyroxine Sodium [Synthroid] 88 mcg PO DAILY 02/26/14 04/18/18 Multivitamins, Thera [Multivitamin 1 tab PO DAILY 02/26/14 04/18/18 (formulary)] Pioglitazone HCl [Actos] 45 mg PO DAILY 02/26/14 04/18/18 Potassium Chloride [Klor-Con 10] 10 meq PO DAILY 02/26/14 04/18/18 Pravastatin Sodium [Pravachol] 20 mg PO HS 02/26/14 04/18/18 Losartan [Cozaar] 25 mg PO DAILY 11/08/14 04/18/18 metFORMIN HCL 1,000 mg PO BID 11/30/16 04/18/18 Linagliptin [Tradjenta] 5 mg PO DAILY 12/14/16 04/18/18 Metoprolol Succinate (ER) [Toprol 50 mg PO DAILY 02/20/18 04/18/18 XL] Emmett-3 Fatty Acids [Emmett-3] 1,000 mg PO DAILY 02/20/18 04/18/18 Cyclobenzaprine HCl 10 mg PO HS 02/22/18 04/18/18 Diclofenac Potassium [Cataflam] 50 mg PO TID PRN 02/22/18 04/18/18 Acetaminophen [Tylenol] 325 mg PO Q6HR PRN 03/07/18 04/18/18 Magnesium Oxide 400 mg PO BID 03/21/18 04/18/18 Pravastatin Sodium [Pravachol] 40 mg PO HS 03/21/18 04/18/18 SILVER sulfADIAZINE Cream 1 applic TOPICAL DAILY 03/21/18 04/18/18 [Silvadene 1% Cream] Previous Rx's Medication Instructions Recorded Magnesium Hydroxide [Milk of 2,400 mg PO DAILY PRN ml 02/27/18 Magnesia Concentrate] Melatonin 3 mg PO HS PRN tablet 02/27/18 Allergies Allergy/AdvReac Type Severity Reaction Status Date / Time sulfamethoxazole Allergy Dyspnea Verified 04/28/18 20:18 [From Bactrim] trimethoprim [From Bactrim] Allergy Dyspnea Verified 04/28/18 20:18 Review of Systems ROS Statement: Those systems with pertinent positive or pertinent negative responses have been documented in the HPI. ROS Other: All systems not noted in ROS Statement are negative. Limitations: ROS unobtainable due to patients medical condition Past Medical History Past Medical History: Diabetes Mellitus, Eye Disorder, Hyperlipidemia, Hypertension, Osteoarthritis (OA), Thyroid Disorder Additional Past Medical History / Comment(s): Pt recently admitted to [facility] on with acute severe L lower extremity cellulitis, bilateral heel decubs- stage II/sepsis and acute renal failure. Other hx: Diabetic hernandez grade II wounds bilat. heels-seen by Dr. Doran in [facility], chronic lymphedema bilateral lower extremities, NIDDM type II, neuropathy bilateral feet, arthritis multiple joints, R eye cataract, R eye bleed with surgery. History of Any Multi-Drug Resistant Organisms: MRSA Date of last positivie culture/infection: 08/23/17 MDRO Source:: HEEL Past Surgical History: Hysterectomy, Joint Replacement, Orthopedic Surgery Additional Past Surgical History / Comment(s): Bilateral heel debridements, Picc line now removed, R foot surgery with screws, colonoscopy, R total hip arthroplasty, bilateral total knee arthroplasties, L cataract removal/lens implants, R eye blood clot removal, 2017 aortagram with bilateral runoffs Past Anesthesia/Blood Transfusion Reactions: No Reported Reaction Past Psychological History: No Psychological Hx Reported Smoking Status: Never smoker Past Alcohol Use History: Occasional Past Drug Use History: None Reported - Past Family History Mother Family Medical History: Cancer Additional Family Medical History / Comment(s): Mother of lung cancer in her 80s. She was a nonsmoker. Brother(s) Family Medical History: Cancer Father Brother(s) Family Medical History: Cancer Additional Family Medical History / Comment(s): Father had prostrate cancer. He lived into his 80s. Mother Sister(s) Family Medical History: Cancer, Diabetes Mellitus Sister(s) Family Medical History: Cancer, Diabetes Mellitus General Exam Limitations: altered mental status, physical limitation General appearance: obtunded, obese Head exam: Present: atraumatic Eye exam: Present: other (Pupils fixed and dilated) ENT exam: Present: other (Endotracheal tube present) Neck exam: Present: normal inspection Respiratory exam: Present: other (No spontaneous respirations. Equal breath sounds bilaterally) Cardiovascular Exam: Present: other (No spontaneous heart sounds. No pulse) GI/Abdominal exam: Present: soft Extremities exam: Present: pedal edema Neurological exam: Present: other (Unresponsive) Psychiatric exam: Present: other (Unresponsive) Skin exam: Present: other (Left lower leg with dark purplish, chronic appearing skin changes) Course Vital Signs 04/28/18 04/28/18 04/28/18 20:15 20:23 20:32 Pulse Rate 42 L 44 L 91 Respiratory 0 L Rate Blood Pressure 95/80 61/39 122/71 04/28/18 04/28/18 04/28/18 20:34 20:41 20:52 Pulse Rate 47 L 91 84 Respiratory Rate Blood Pressure 103/80 131/67 99/25 04/28/18 04/28/18 21:00 21:12 Pulse Rate 113 H 80 Respiratory Rate Blood Pressure 130/76 115/61 - Reevaluation(s) Reevaluation #1: 04/28/18 21:08 Patient has now undergone intermittent CPR was in the emergency department for approximately 4-5 minutes. Endotracheal tracheal tube was withdrawn 3 cm. 04/28/18 21:30 Long discussion had with family. They state patient has been vomiting only for a couple of hours and did become very short of breath when EMS arrived. Family did witness patient become unresponsive in the emesis as they were following. They state patient has had chronic cough which the were concerned could be something worse. Secondary to prolonged CPR and no sign of mental activity continued CPR is felt to be futile. Family is agreement with this and does not want patient to have further CPR. They are brought into the room. 04/28/18 21:52 At 2135 patient was asystole on the monitor. No heart sounds. No pulse. No spontaneous breaths. No response to pain. Pupils are fixed and dilated. Time of is 2134. Family is present and aware. Case was discussed with Dr. Solorzano who will sign the certificate For his patient. 04/28/18 21:54 Case was discussed with medical program specialist Keena who does okay release of the body. EKG Findings - EKG Comments: EKG Findings:: Wide-complex QRS with a rate of 52. QRS 196. QT 438. QTC 407. Left axis. Right bundle branch block. LVH. Nonspecific ST-T. Medical Decision Making - Lab Data Result diagrams: 04/28/18 20:30 04/28/18 20:30 Lab Results 04/28/18 04/28/18 04/28/18 Range/Units 20:16 20:30 20:30 WBC (3.8-10.6) k/uL RBC (3.80-5.40) m/uL Hgb (11.4-16.0) gm/dL Hct (34.0-46.0) % MCV (80.0-100.0) fL MCH (25.0-35.0) pg MCHC (31.0-37.0) g/dL RDW (11.5-15.5) % Plt Count (150-450) k/uL Neutrophils % (Manual) % Band Neutrophils % % Lymphocytes % (Manual) % Monocytes % (Manual) % Eosinophils % (Manual) % Metamyelocytes % % Myelocytes % % Neutrophils # (Manual) (1.3-7.7) k/uL Lymphocytes # (Manual) (1.0-4.8) k/uL Monocytes # (Manual) (0-1.0) k/uL Eosinophils # (Manual) (0-0.7) k/uL Metamyelocytes # (Man) (0) k/uL Myelocytes # (Manual) (0) k/uL Nucleated RBCs (0-0) /100 WBC Manual Slide Review Toxic Granulation Toxic Vacuolation Large Platelets Polychromasia Hypochromasia Poikilocytosis (manual Anisocytosis PT (9.0-12.0) sec INR (<1.2) APTT (22.0-30.0) sec Sodium 136 L (137-145) mmol/L Potassium 6.3 H* (3.5-5.1) mmol/L Chloride 98 (98-107) mmol/L Carbon Dioxide 15 L (22-30) mmol/L Anion Gap 23 mmol/L BUN 17 (7-17) mg/dL Creatinine 1.12 H (0.52-1.04) mg/dL Est GFR (CKD-EPI)AfAm 57 (>60 ml/min/1.73 sqM) Est GFR (CKD-EPI)NonAf 50 (>60 ml/min/1.73 sqM) Glucose 419 H (74-99) mg/dL POC Glucose (mg/dL) 401 H (75-99) mg/dL POC Glu Wet Char Conveyor Tender ID Pretty Lin Calcium 9.3 (8.4-10.2) mg/dL Total Bilirubin 0.6 (0.2-1.3) mg/dL AST 77 H (14-36) U/L ALT 18 (9-52) U/L Alkaline Phosphatase 182 H (38-126) U/L Total Creatine Kinase 64 (30-135) U/L CK-MB (CK-2) 2.3 (0.0-2.4) ng/mL CK-MB (CK-2) Rel Index 3.6 Troponin I 1.020 H* (0.000-0.034) ng/mL Total Protein 8.1 (6.3-8.2) g/dL Albumin 3.4 L (3.5-5.0) g/dL 04/28/18 04/28/18 Range/Units 20:30 20:30 WBC 26.3 H (3.8-10.6) k/uL RBC 3.38 L (3.80-5.40) m/uL Hgb 8.8 L (11.4-16.0) gm/dL Hct 31.0 L (34.0-46.0) % MCV 91.7 (80.0-100.0) fL MCH 26.1 (25.0-35.0) pg MCHC 28.5 L (31.0-37.0) g/dL RDW 16.4 H (11.5-15.5) % Plt Count 367 (150-450) k/uL Neutrophils % (Manual) 55 % Band Neutrophils % 2 % Lymphocytes % (Manual) 37 % Monocytes % (Manual) 4 % Eosinophils % (Manual) 2 % Metamyelocytes % 1 % Myelocytes % 1 % Neutrophils # (Manual) 14.90 H (1.3-7.7) k/uL Lymphocytes # (Manual) 9.73 H (1.0-4.8) k/uL Monocytes # (Manual) 1.05 H (0-1.0) k/uL Eosinophils # (Manual) 0.53 (0-0.7) k/uL Metamyelocytes # (Man) 0.26 H (0) k/uL Myelocytes # (Manual) 0.26 H (0) k/uL Nucleated RBCs 0 (0-0) /100 WBC Manual Slide Review Performed Toxic Granulation Present Toxic Vacuolation Present Large Platelets Present Polychromasia Present Hypochromasia Marked Poikilocytosis (manual Present Anisocytosis Slight PT 11.7 (9.0-12.0) sec INR 1.1 (<1.2) APTT 26.7 (22.0-30.0) sec Sodium (137-145) mmol/L Potassium (3.5-5.1) mmol/L Chloride (98-107) mmol/L Carbon Dioxide (22-30) mmol/L Anion Gap mmol/L BUN (7-17) mg/dL Creatinine (0.52-1.04) mg/dL Est GFR (CKD-EPI)AfAm (>60 ml/min/1.73 sqM) Est GFR (CKD-EPI)NonAf (>60 ml/min/1.73 sqM) Glucose (74-99) mg/dL POC Glucose (mg/dL) (75-99) mg/dL POC Glu Wet Char Conveyor Tender ID Calcium (8.4-10.2) mg/dL Total Bilirubin (0.2-1.3) mg/dL AST (14-36) U/L ALT (9-52) U/L Alkaline Phosphatase (38-126) U/L Total Creatine Kinase (30-135) U/L CK-MB (CK-2) (0.0-2.4) ng/mL CK-MB (CK-2) Rel Index Troponin I (0.000-0.034) ng/mL Total Protein (6.3-8.2) g/dL Albumin (3.5-5.0) g/dL Critical Care Time Critical Care Time: Yes Total Critical Care Time: 60 Disposition Clinical Impression: Cardiac arrest Disposition: Is patient prescribed a controlled substance at d/c from ED?: No Referrals: None,Stated [Primary Care Provider] - 1-2 days Preliminary Cause of : Cardiac arrest
[2018-04-28 21:02] LABS: Creatine Kinase MB 2.3 ng/mL (0.0-2.4)
[2018-04-28 21:13] LABS: Potassium 6.3 mmol/L (3.5-5.1)
[2018-04-28 21:14] LABS: Troponin I 1.02 ng/mL (0.000-0.034)
[2018-04-28 21:15] VITALS: BP 115/61; PULSE 80
[2018-04-28] MEDS ORDERED: INSULIN REGULAR 100 UNIT/ML VIAL IV ONE (21:16)
[2018-04-28] MEDS ORDERED: CALCIUM CHLORIDE 100 MG/ML 10 ML SYRINGE IVP STA (21:16)
[2018-04-28] MEDS ORDERED: FUROSEMIDE 10 MG/ML 4 ML VIAL IV STA (21:16)
[2018-04-28] MEDS ORDERED: ALBUTEROL NEBULIZED 2.5 MG/3 ML INHALATION STA (21:16)
[2018-04-28 21:21] LABS: Band Neutrophils % 2 %; Eosinophils # (M) 0.53 k/uL (0-0.7); Lymphocytes # (M) 9.73 k/uL (1.0-4.8); Metamyelocytes # (M) 0.26 k/uL (0); Metamyelocytes % 1 %; Monocytes # (M) 1.05 k/uL (0-1.0); Myelocytes # (M) 0.26 k/uL (0); Myelocytes % 1 %; Neutrophils % (M) 55 %; Nucleated Red Blood Cells 0 /100 WBC (0-0); Total Cells Counted 200
[2018-04-28 21:22] LABS: Large Platelets Present; Poikilocytosis (M) Present; Polychromasia Present
[2018-04-28 21:23] LABS: Toxic Granulation Present; Toxic Vacuolation Present
--- NOTE | 2018-04-28 21:32 | XR ---
EXAMINATION TYPE: XR chest 1V portable DATE OF EXAM: 04/28/2018 COMPARISON: 02/20/2018 HISTORY: Unresponsive TECHNIQUE: Single frontal view of the chest is obtained. FINDINGS: There is endotracheal tube that is 2 cm into the right mainstem bronchus. There is extensi ve bilateral pulmonary airspace edema. There are chest leads. IMPRESSION: There is severe pulmonary edema that is new compared to old exam. There is probably card iomegaly. Endotracheal tube is malpositioned and should be pulled back 6 cm.
== END 2018-04-28 23:42 | disposition expired ==
LOC: EC 20:13
DX: I46.9 Cardiac arrest, cause unspecified (principal); E11.9 Type 2 diabetes mellitus without complications; E78.5 Hyperlipidemia, unspecified; I10 Essential (primary) hypertension; M19.90 Unspecified osteoarthritis, unspecified site; E07.9 Disorder of thyroid, unspecified; G62.9 Polyneuropathy, unspecified; Z86.14 Personal history of Methicillin resistant Staphylococcus aureus infection; Z96.641 Presence of right artificial hip joint; Z96.653 Presence of artificial knee joint, bilateral; Z90.710 Acquired absence of both cervix and uterus; Z98.890 Other specified postprocedural states; Z79.82 Long term (current) use of aspirin; Z79.84 Long term (current) use of oral hypoglycemic drugs; Z79.899 Other long term (current) drug therapy; Z88.1 Allergy status to other antibiotic agents; Z88.2 Allergy status to sulfonamides
CPT/HCPCS: 99291; 92950; 96374; 96375; 36415; 94002; 80053; 82550; 82553; 84484; 85025; 85610; 85730; 71045; J1940; J0461; J0171